=== PATIENT | female | born 1960 | race Caucasian/White ===

== ENCOUNTER → 2018-11-25 14:19 | Outpatient (CLI) | payer OTHER, SELFPAY ==
[2018-11-28 13:47] LABS: Fecal Immunochemical Test NOT DETECTED (NOT DETECTED)
== END ==
PROVIDERS: PCP Internal Medicine; Visit Provider Internal Medicine
DX: Z12.11 Encounter for screening for malignant neoplasm of colon (principal)
CPT/HCPCS: 82274

== ENCOUNTER → 2018-11-26 07:54 | Outpatient (CLI) | payer OTHER, SELFPAY ==
[2018-11-26 09:02] LABS: Add Manual Diff / Slide Review NO; Basophils Absolute Auto 100 /uL (0-100); Eosinophils Absolute Auto 100 /uL (0-450); Eosinophils Percent Auto 1.6 % (2-4); Hematocrit 41.1 % (36-46); Hemoglobin 13.7 g/dL (12.0-16.0); Lymphocytes Absolute Auto 1400 /uL (1100-4500); Lymphocytes Percent Auto 38.1 % (25-40); Mean Corpuscular HGB Conc 33.2 % (30-36); Mean Corpuscular Hemoglobin 28.2 PG (26-34); Mean Corpuscular Volume 84.9 fL (80-100); Monocytes Absolute Auto 200 /uL (0-900); Monocytes Percent Auto 6.5 % (3-14); Neutrophils Absolute Auto 1900 /uL (1500-7000); Neutrophils Percent Auto 51.8 % (50-75); Platelet Count 224 X10^3/uL (150-400); Red Blood Cell Count 4.85 X10^6/uL (4.0-5.2); Red Cell Distribution Width 13.5 % (11.6-14.8); White Blood Cell Count 3.8 X10^3/uL (4.5-11.0)
[2018-11-26 09:09] LABS: Alanine Aminotransferase 25 IU/L (9-52); Albumin 4.9 g/dL (3.5-5.0); Albumin Globulin Ratio 1.7 (1.0-2.8); Alkaline Phosphatase 43 U/L (38-126); Aspartate Aminotransferase 22 IU/L (14-36); Bilirubin Total 0.6 mg/dL (0.2-1.3); Blood Urea Nitrogen 7 mg/dL (7-17); Calcium 10.2 mg/dL (8.4-10.2); Carbon Dioxide 27 mmol/L (22-32); Chloride 103 mmol/L (98-107); Cholesterol 226 mg/dL (140-199); Estimated Glomerular Filt Rate > 60.0 mL/min (>60); Globulin 2.9 g/dL (1.7-4.1); Glucose 91 mg/dL (70-100); HDL Cholesterol 81 mg/dL (40-60); HEMOLYSIS < 15 (0-50); LDL Cholesterol Calculated 128 mg/dL (<100); Potassium 4.2 mmol/L (3.4-5.1); Sodium 141 mmol/L (137-145); Total Protein 7.8 g/dL (6.3-8.2); Triglycerides 86 mg/dL (35-150)
[2018-11-26 09:45] LABS: Free T4, Direct Thyroxine 1.08 ng/dL (0.78-2.19)
[2018-11-26 09:59] LABS: Thyroid Stimulating Hormone 2.57 uIU/mL (0.47-4.68)
== END ==
PROVIDERS: PCP Internal Medicine
DX: Z00.00 Encounter for general adult medical examination without abnormal findings (principal); Z13.1 Encounter for screening for diabetes mellitus; Z13.6 Encounter for screening for cardiovascular disorders; N95.1 Menopausal and female climacteric states; R53.83 Other fatigue
CPT/HCPCS: 36415; 80053; 80061; 83001; 84439; 84443; 85025

== ENCOUNTER → 2018-12-16 12:09 | Outpatient (CLI) | payer OTHER, SELFPAY ==
--- NOTE | 2018-12-16 | DI.MG.S_ITS ---
BILATERAL DIGITAL SCREENING MAMMOGRAM 3D/2D WITH CAD: 12/16/2018 CLINICAL: Baseline exam. Routine screening. No prior exams were available for comparison. The tissue of both breasts is heterogeneously dense. This may lower the sensitivity of mammography. Current study was also evaluated with a Computer Aided Detection (CAD) system. There are benign calcifications in both breasts. No significant masses, calcifications, or other findings are seen in either breast. IMPRESSION: There is no mammographic evidence of malignancy. A 1 year screening mammogram is recommended. This exam was interpreted at Station ID: [id number]. NOTE: For mammograms, a report in lay terms will be sent to the patient. Approximately 15% of breast malignancies will not be visualized mammographically. In the management of a palpable breast mass, a negative mammogram must not discourage biopsy of a clinically suspicious lesion. Electronically Signed By: Juwan [email or web address]:12/16/2018 12:59:27 letter sent: Normal Exam ACR BI-RADS Category 2: Benign Finding(s) 3342F
== END ==
PROVIDERS: PCP Internal Medicine
DX: Z12.31 Encounter for screening mammogram for malignant neoplasm of breast (principal)
CPT/HCPCS: 77063; 77067

== ENCOUNTER 2020-12-13 16:26 | Inpatient (IN) | payer OTHER, SELFPAY ==
[2020-12-13] VITALS (9 sets, daily range): BP systolic 131–152; BP diastolic 73–81; PULSE 69–79; RESP 16–22; TEMP 36.1–37.1; O2SAT 96–100; BMI 18.8; BMI 19.1
--- NOTE | 2020-12-13 | DI.RAD.S_ITS ---
PROCEDURE: XR WRIST RT MIN 3V INDICATIONS: PAIN TECHNIQUE: 4 views of the wrist were acquired. COMPARISON: [facility], CR, XR WRIST LT MIN 3V, 12/13/2020, 16:45. FINDINGS: Bones: No fractures or dislocations. No suspicious bony lesions. Scaphoid view: Visualized fracture. Soft tissues: No suspicious soft tissue calcifications. IMPRESSION: No visualized acute fracture or dislocation. However, if clinical concern and/or pain persist, short interval imaging followup in 7-10 days is recommended, as occult injury cannot be definitively excluded. Dictated by: Nell Mackenzie M.D. on 12/13/2020 at 17:18 Approved by: Nell Mackenzie M.D. on 12/13/2020 at 17:19
--- NOTE | 2020-12-13 16:34 | DI.RAD.S_ITS ---
PROCEDURE: XR WRIST LT MIN 3V INDICATIONS: fall TECHNIQUE: 4 views of the wrist were acquired. COMPARISON: None. FINDINGS: Bones: No fractures or dislocations. No suspicious bony lesions. Scaphoid view: No visualized fracture. Soft tissues: No suspicious soft tissue calcifications. IMPRESSION: No visualized acute fracture or dislocation. However, if clinical concern and/or pain persist, short interval imaging followup in 7-10 days is recommended, as occult injury cannot be definitively excluded. Dictated by: Nell Mackenzie M.D. on 12/13/2020 at 17:17 Approved by: Nell Mackenzie M.D. on 12/13/2020 at 17:17
--- NOTE | 2020-12-13 16:34 | DI.RAD.S_ITS ---
PROCEDURE: XR KNEE RT 1TO2V INDICATIONS: fall TECHNIQUE: 2 views of the knee were acquired. COMPARISON: None. FINDINGS: Bones: There is a markedly displaced mid patellar fracture. Remaining osseous structures appear intact. Soft tissues: Large joint effusion. No suspicious soft tissue calcifications. IMPRESSION: Displaced mid patellar fracture with large effusion. Dictated by: Nell Mackenzie M.D. on 12/13/2020 at 17:17 Approved by: Nell Mackenzie M.D. on 12/13/2020 at 17:18
--- NOTE | 2020-12-13 17:09 | ED_ITS ---
HPI - Extremity Injury (Lower) <RUBIO NuñezP - Last Filed: 12/13/20 23:59> General Chief Complaint: Extremity Injury, Lower Stated Complaint: Fell, knee pain Time Seen by Provider: 12/13/20 16:52 Source: patient Mode of arrival: EMS Limitations: no limitations History of Present Illness HPI Narrative: This is a 60 year female, nonsmoker, who has no contributory medical history presents to ED with chief complain of right knee/patella pain and bilateral radial aspect of wrist pain after she sustained a fall at [employer] (formerly [employer]) before coming into ED. Patient reports she was just moving from sidewalk to the grass median and thinks accidentally her foot was got a caught on tree roots and fell directly on right patella on a sidewalk. Patient reports severe pain on right patella which increases with movement and by light touch. Patient reports intact sensation distally and is able to move toes. Patient also reports intact sensation and is able to move her fingers but pain in volar aspect of bilateral red ear aspect. Patient sustained superficial abrasions on bilateral palm. Patient denies hitting her head or injuring to other areas. Patient had last tetanus immunization updated more than 10 years ago but she is not inclined to update today stating she would like to get COVID vaccination this coming Wednesday. Patient received pain medication en route by EMS. Related Data Previous Rx's Medication Instructions Recorded hydrocortisone acetate 25 mg 25 mg UT BID #12 each 07/14/19 rectal suppository Allergies Allergy/AdvReac Type Severity Reaction Status Date / Time hydrocodone [From VICODIN] AdvReac Unknown Verified 07/14/19 13:51 Review of Systems <JESS Nuñez - Last Filed: 12/13/20 23:59> Review of Systems Narrative: General: Denies fever, chills, fatigue, malaise, sweats. HEENT: Denies sinus pain, ear pain, sore throat, difficulty swallowing, dizziness. Respiratory: Denies dyspnea, cough, wheezing, hemoptysis, sputum. Cardiovascular: Denies chest pain, palpitations, orthopnea, edema. Gastrointestinal: Denies nausea, vomiting, abdominal pain, diarrhea, constipation, melena. : Denies dysuria, frequency, incontinence, hematuria, urinary retention. Musculoskeletal: See HPI Skin: See HPI Neurologic: Denies weakness, headache, numbness, change in speech, confusion, seizures, incoordination. Psychiatric: No concerning psychosocial issues. 12-point review of systems is negative except for those stated above. Patient History <RUBIO NuñezP - Last Filed: 12/13/20 23:59> Medical History Acne (~1969) Allergic rhinitis (Unknown) Chickenpox Chlamydia (~1980) Eczema (Unknown) Endometriosis (~1969) Fibroids (Unknown) Foot pain (Unknown) Fractures (~1961) Genital warts (Unknown) Hemorrhoids (Unknown) IBS (irritable bowel syndrome) (Unknown) Menstrual problem (Unknown) Migraines (Unknown) Ovarian cyst (Unknown) Plantar warts (~1981) Shoulder pain (~2008) Sleep apnea (Unknown) Tinnitus of both ears (Unknown) Vertigo (03/2017) Surgical History History of oral surgery Status post laparoscopy Status post laparoscopy Family History Father Age: 90 Hypertension Grandmother Adult onset diabetes mellitus with ketoacidosis Grandfather No problems noted. Grandmother Cancer Mother No problems noted. Mother Hepatitis C Social History household members: none Smoking Status: Never smoker alcohol intake: never substance use type: does not use Smoking Status: Never smoker Exam <Rashid Aceves JEWELER APPRENTICE - Last Filed: 12/13/20 23:59> Narrative Exam Narrative: General appearance: well developed, well nourished, in moderate distress from pain. Head: normocephalic, atraumatic, no scalp lesions, non-tender. ENT: Hearing grossly intact. Airway patent. Neck/Thyroid: neck supple, full range of motion, no visible masses or meningeal signs. No JVD, non-tender without lymphadenopathy. Skin: See for facial abrasion to bilateral palms without active bleeding. Warm and dry and appropriate color for ethnicity. Heart: no clubbing, no cyanosis, no edema. S1 and S2 normal. RRR w/o murmurs, clicks, or bruits. Lungs: Breathing even and unlabored. No stridor. No accessory muscles used. Able to speak in full sentences. Chest: normal shape and expansion. Abdomen: non-obese, non-distended. Neurologic: alert and oriented. Cognitive exam, D[employer] COMM[employer]ICATION[employer]GER and PNS grossly intact on informal exam. Psych: good eye contact, normal affect. EXTREMITY: Right knee with exquisite pain with light palpation with ecchymosis. Intact pedal pulse, mobility to toes, and sensation distally. Resting affected leg on a pillow. Bilateral wrist able to flex and extend. Intact radial pulses with brisk cap refill in bilateral hand and sensation. Superficial laceration on bilateral palms. No significant edema in posterior knee. Initial Vital Signs Initial Vital Signs: Vital Signs Temperature 97.4 F L 12/13/20 16:40 Pulse Rate 69 12/13/20 16:40 Blood Pressure 152/73 H 12/13/20 16:40 Pulse Oximetry 99 12/13/20 16:40 <Vandana Shrestha DO - Last Filed: 12/14/20 19:52> Initial Vital Signs Initial Vital Signs: Vital Signs Temperature 97.4 F L 12/13/20 16:40 Pulse Rate 69 12/13/20 16:40 Blood Pressure 152/73 H 12/13/20 16:40 Pulse Oximetry 99 12/13/20 16:40 Scores <JESS Nuñez - Last Filed: 12/13/20 23:59> GCS Effie coma scale eye opening: Spontaneous Lamar coma scale verbal response: Orientated Effie coma scale motor response: Obey commands Effie coma scale total score: 15 Course <JESS Nuñez - Last Filed: 12/13/20 23:59> Orders Ordered: Acetaminophen (Acetaminophen 325 Mg Tablet) 975 mg PO TID TO Benzocaine (Benzocaine/Menthol 1 Connie Pkt) 1 each PO PRN PRN PRN Reason: Sore Throat Docusate Sodium (Docusate 100 Mg Capsule) 100 mg PO BID TO Enoxaparin Sodium (Enoxaparin 40 Mg/0.4 Ml Syringe) 40 mg SUBCUT DAILY TO Hydromorphone HCl (Hydromorphone 0.5 Mg Inj) 0.2 mg IV Q1H PRN PRN Reason: Pain, Severe (7-10) Lactated Ringer's (Lactated Ringers) 1,000 mls @ 100 mls/hr IV CONT [facility] Last Admin: 12/14/20 16:15 Dose: 100 mls/hr Documented by: RADHA Cefazolin Sodium/Dextrose (Ancef) 2 gm in 100 mls @ 200 mls/hr IV Q8H [facility] Stop: 12/15/20 05:29 Naloxone HCl (Naloxone 0.4 Mg/Ml Vial) 0.2 mg IV Q2MIN PRN PRN Reason: Opiate Reversal Ondansetron HCl (Ondansetron 4 Mg Odt) 4 mg PO Q4HR PRN PRN Reason: Nausea And Vomiting Oxycodone HCl (Oxycodone Ir 5 Mg Tablet) 5 mg PO Q4HR PRN PRN Reason: Pain, Moderate (4-6) Discontinued Medications Acetaminophen (Acetaminophen 325 Mg Tablet) 650 mg PO NOW ONE Stop: 12/14/20 12:34 Last Admin: 12/14/20 12:40 Dose: 650 mg Documented by: DIOR Docusate Sodium (Docusate 100 Mg Capsule) 100 mg PO BID [facility] Last Admin: 12/14/20 09:14 Dose: Not Given Documented by: Admin: 12/13/20 21:14 Dose: Not Given Documented by: MONIK Fentanyl (Fentanyl 100 Mcg/2 Ml Inj) 50 mcg IV Q1H PRN PRN Reason: Pain, Severe (7-10) Last Admin: 12/14/20 09:30 Dose: 50 mcg Documented by: Admin: 12/14/20 08:23 Dose: 50 mcg Documented by: Admin: 12/14/20 04:39 Dose: 50 mcg Documented by: Admin: 12/14/20 01:04 Dose: 50 mcg Documented by: Admin: 12/13/20 21:53 Dose: 50 mcg Documented by: СЕРГЕЙ Admin: 12/13/20 20:22 Dose: 50 mcg Documented by: ZORHA Fentanyl (Fentanyl 100 Mcg/2 Ml Inj) 100 mcg IV Q1H PRN PRN Reason: Pain, Severe (7-10) Last Admin: 12/14/20 10:31 Dose: 100 mcg Documented by: JAVAD Fentanyl (Fentanyl 100 Mcg/2 Ml Inj) 50 mcg IV Q5MIN PRN PRN Reason: Pain, Severe (7-10) Last Admin: 12/14/20 12:30 Dose: 50 mcg Documented by: DIOR Fentanyl (Fentanyl 100 Mcg/2 Ml Inj) 0 mcg IV Q5M PRN PRN Reason: Pain, Moderate (4-6) Hydromorphone HCl (Hydromorphone 0.5 Mg Inj) 0.5 mg IV NOW ONE Stop: 12/13/20 17:10 Last Admin: 12/13/20 17:33 Dose: 0.5 mg Documented by: SADIE Hydromorphone HCl (Hydromorphone 1 Mg Inj) 1 mg IV Q6H PRN PRN Reason: Pain, Severe (7-10) Hydromorphone HCl (Hydromorphone 2 Mg Inj) 0 mg IV Q5MIN PRN PRN Reason: Pain, Mild (1-3) Hydroxyzine HCl (Hydroxyzine 50 Mg/Ml Inj) 25 mg IM NOW PRN PRN Reason: Pain, Mild (1-3) Hydroxyzine Pamoate (Hydroxyzine Pamoate 25 Mg Capsule) 25 mg PO NOW PRN PRN Reason: Pain, Mild (1-3) Sodium Chloride (Normal Saline 0.9%) 1,000 mls @ 100 mls/hr IV CONT TO Last Infusion: 12/14/20 12:20 Dose: 0 mls/hr Documented by: Admin: 12/14/20 06:32 Dose: 100 mls/hr Documented by: Infusion: 12/14/20 06:32 Dose: 100 mls/hr Documented by: Admin: 12/13/20 21:11 Dose: 100 mls/hr Documented by: MONIK Cefazolin Sodium/Dextrose (Ancef) 2 gm in 100 mls @ 200 mls/hr IV NOW ONE Stop: 12/14/20 12:34 Last Infusion: 12/14/20 13:18 Dose: 0 mls/hr Documented by: Admin: 12/14/20 13:00 Dose: 200 mls/hr Documented by: KEARA Lactated Ringer's (Lactated Ringers) 1,000 mls @ 42 mls/hr IV CONT TO Last Infusion: 12/14/20 15:42 Dose: 42 mls/hr Documented by: Admin: 12/14/20 13:41 Dose: 42 mls/hr Documented by: Infusion: 12/14/20 13:41 Dose: 42 mls/hr Documented by: Admin: 12/14/20 12:37 Dose: 42 mls/hr Documented by: DIOR Ketorolac Tromethamine (Ketorolac 30 Mg/Ml Vial) 30 mg IV NOW ONE Stop: 12/14/20 14:35 Last Admin: 12/14/20 14:34 Dose: 10 mg Documented by: MARLYN Lorazepam (Lorazepam 2 Mg/Ml Inj) 0.25 mg IV NOW PRN PRN Reason: Anxiety Meperidine HCl (Meperidine 50 Mg/Ml Inj) 12.5 mg IV PACUNOW PRN PRN Reason: Mild pain or shivering Metoclopramide HCl (Metoclopramide 10 Mg/2 Ml Inj) 10 mg IV NOW PRN PRN Reason: Nausea And Vomiting Midazolam HCl (Midazolam 2 Mg/2 Ml Vial) 2 mg IV NOW ONE Stop: 12/14/20 12:20 Last Admin: 12/14/20 12:31 Dose: 1 mg Documented by: DIOR Morphine Sulfate (Morphine 2 Mg/Ml Inj) 2 mg IV Q4HR PRN PRN Reason: Pain, Moderate (4-6) Last Admin: 12/14/20 06:49 Dose: 2 mg Documented by: Admin: 12/14/20 03:07 Dose: 2 mg Documented by: Admin: 12/13/20 23:40 Dose: 2 mg Documented by: ARLENE Morphine Sulfate (Morphine 2 Mg/Ml Inj) 2 mg IV Q2HR [facility] Last Admin: 12/14/20 12:05 Dose: Not Given Documented by: Admin: 12/14/20 10:32 Dose: Not Given Documented by: AJVAD Morphine Sulfate (Morphine 2 Mg/Ml Inj) 2 mg IV Q2HR PRN PRN Reason: Pain, Moderate (4-6) Morphine Sulfate (Morphine 4 Mg/Ml Inj) 4 mg IV NOW ONE Stop: 12/14/20 14:35 Last Admin: 12/14/20 14:34 Dose: 4 mg Documented by: MARLYN Naloxone HCl (Naloxone 0.4 Mg/Ml Vial) 0.2 mg IV Q2MIN PRN PRN Reason: Opiate Reversal Ondansetron HCl (Ondansetron 4 Mg Odt) 4 mg PO Q8HR PRN PRN Reason: Nausea And Vomiting Last Admin: 12/13/20 21:53 Dose: 4 mg Documented by: СЕРГЕЙ Ondansetron HCl (Ondansetron 4 Mg/2 Ml Inj) 4 mg IV Q4HR PRN PRN Reason: Nausea And Vomiting Last Admin: 12/14/20 12:31 Dose: 4 mg Documented by: DIOR Ondansetron HCl (Ondansetron 4 Mg/2 Ml Inj) 4 mg IV NOW PRN PRN Reason: Nausea And Vomiting Oxycodone HCl (Oxycodone Ir 5 Mg Tablet) 5 mg PO Q6HR PRN PRN Reason: Pain, Moderate (4-6) Oxycodone HCl (Oxycodone Ir 5 Mg Tablet) 5 mg PO PACUNOW PRN PRN Reason: Mild or moderate pain Ropivacaine (Ropivacaine 0.5% Pf 5 Mg/Ml 20ml Vial) 10 ml INJ NOW ONE Stop: 12/14/20 14:32 Last Admin: 12/14/20 14:32 Dose: 8 ml Documented by: MARLYN Reevaluation(s) Reevaluation #1: patient reports Dilaudid help after feeling calmed but pain moscoso much improvement. Patient unable to tolerate palpation and assessment with exquisite pain. Patient lives alone and has stairs to manage at home. Time: 18:30 Reevaluation #2: Patient requesting more pain medications fentanyl which worked better for her. This is her 4th IV medication administration to manage pain to tolerable level. Time: 20:05 Consultations Consultation #1: Consulted Dr. Benoit on the phone. If the pain is not well managed, he recommended for hospitalization under hospitalist care and he will consult. Patient is surgical candidate for this repair for patella fracture. Time: 18:31 Consultation #2: Spoke with for admission and he kindly accepted the patient's care for pain management under observation. Time: 20:11 Vital Signs Vital signs: Vital Signs - 8 hr 12/13/20 16:40 12/13/20 17:06 12/13/20 17:30 Temperature 97.4 F L Pulse Rate 69 73 76 Blood Pressure 152/73 H Pulse Oximetry 99 98 100 12/13/20 18:00 12/13/20 18:30 12/13/20 19:00 Temperature Pulse Rate 79 73 76 Blood Pressure Pulse Oximetry 99 99 98 <Vandana Shrestha, DO - Last Filed: 12/14/20 19:52> Orders Ordered: Acetaminophen (Acetaminophen 325 Mg Tablet) 975 mg PO TID [facility] Benzocaine (Benzocaine/Menthol 1 Connie Pkt) 1 each PO PRN PRN PRN Reason: Sore Throat Docusate Sodium (Docusate 100 Mg Capsule) 100 mg PO BID [facility] Enoxaparin Sodium (Enoxaparin 40 Mg/0.4 Ml Syringe) 40 mg SUBCUT DAILY [facility] Hydromorphone HCl (Hydromorphone 0.5 Mg Inj) 0.2 mg IV Q1H PRN PRN Reason: Pain, Severe (7-10) Lactated Ringer's (Lactated Ringers) 1,000 mls @ 100 mls/hr IV CONT [facility] Last Admin: 12/14/20 16:15 Dose: 100 mls/hr Documented by: RADHA Cefazolin Sodium/Dextrose (Ancef) 2 gm in 100 mls @ 200 mls/hr IV Q8H [facility] Stop: 12/15/20 05:29 Naloxone HCl (Naloxone 0.4 Mg/Ml Vial) 0.2 mg IV Q2MIN PRN PRN Reason: Opiate Reversal Ondansetron HCl (Ondansetron 4 Mg Odt) 4 mg PO Q4HR PRN PRN Reason: Nausea And Vomiting Oxycodone HCl (Oxycodone Ir 5 Mg Tablet) 5 mg PO Q4HR PRN PRN Reason: Pain, Moderate (4-6) Discontinued Medications Acetaminophen (Acetaminophen 325 Mg Tablet) 650 mg PO NOW ONE Stop: 12/14/20 12:34 Last Admin: 12/14/20 12:40 Dose: 650 mg Documented by: DIOR Docusate Sodium (Docusate 100 Mg Capsule) 100 mg PO BID [facility] Last Admin: 12/14/20 09:14 Dose: Not Given Documented by: Admin: 12/13/20 21:14 Dose: Not Given Documented by: MONIK Fentanyl (Fentanyl 100 Mcg/2 Ml Inj) 50 mcg IV Q1H PRN PRN Reason: Pain, Severe (7-10) Last Admin: 12/14/20 09:30 Dose: 50 mcg Documented by: Admin: 12/14/20 08:23 Dose: 50 mcg Documented by: Admin: 12/14/20 04:39 Dose: 50 mcg Documented by: Admin: 12/14/20 01:04 Dose: 50 mcg Documented by: Admin: 12/13/20 21:53 Dose: 50 mcg Documented by: СЕРГЕЙ Admin: 12/13/20 20:22 Dose: 50 mcg Documented by: ZOHRA Fentanyl (Fentanyl 100 Mcg/2 Ml Inj) 100 mcg IV Q1H PRN PRN Reason: Pain, Severe (7-10) Last Admin: 12/14/20 10:31 Dose: 100 mcg Documented by: JAVAD Fentanyl (Fentanyl 100 Mcg/2 Ml Inj) 50 mcg IV Q5MIN PRN PRN Reason: Pain, Severe (7-10) Last Admin: 12/14/20 12:30 Dose: 50 mcg Documented by: DIOR Fentanyl (Fentanyl 100 Mcg/2 Ml Inj) 0 mcg IV Q5M PRN PRN Reason: Pain, Moderate (4-6) Hydromorphone HCl (Hydromorphone 0.5 Mg Inj) 0.5 mg IV NOW ONE Stop: 12/13/20 17:10 Last Admin: 12/13/20 17:33 Dose: 0.5 mg Documented by: SADIE Hydromorphone HCl (Hydromorphone 1 Mg Inj) 1 mg IV Q6H PRN PRN Reason: Pain, Severe (7-10) Hydromorphone HCl (Hydromorphone 2 Mg Inj) 0 mg IV Q5MIN PRN PRN Reason: Pain, Mild (1-3) Hydroxyzine HCl (Hydroxyzine 50 Mg/Ml Inj) 25 mg IM NOW PRN PRN Reason: Pain, Mild (1-3) Hydroxyzine Pamoate (Hydroxyzine Pamoate 25 Mg Capsule) 25 mg PO NOW PRN PRN Reason: Pain, Mild (1-3) Sodium Chloride (Normal Saline 0.9%) 1,000 mls @ 100 mls/hr IV CONT TO Last Infusion: 12/14/20 12:20 Dose: 0 mls/hr Documented by: Admin: 12/14/20 06:32 Dose: 100 mls/hr Documented by: Infusion: 12/14/20 06:32 Dose: 100 mls/hr Documented by: Admin: 12/13/20 21:11 Dose: 100 mls/hr Documented by: MONIK Cefazolin Sodium/Dextrose (Ancef) 2 gm in 100 mls @ 200 mls/hr IV NOW ONE Stop: 12/14/20 12:34 Last Infusion: 12/14/20 13:18 Dose: 0 mls/hr Documented by: Admin: 12/14/20 13:00 Dose: 200 mls/hr Documented by: KEARA Lactated Ringer's (Lactated Ringers) 1,000 mls @ 42 mls/hr IV CONT TO Last Infusion: 12/14/20 15:42 Dose: 42 mls/hr Documented by: Admin: 12/14/20 13:41 Dose: 42 mls/hr Documented by: Infusion: 12/14/20 13:41 Dose: 42 mls/hr Documented by: Admin: 12/14/20 12:37 Dose: 42 mls/hr Documented by: DIOR Ketorolac Tromethamine (Ketorolac 30 Mg/Ml Vial) 30 mg IV NOW ONE Stop: 12/14/20 14:35 Last Admin: 12/14/20 14:34 Dose: 10 mg Documented by: MARLYN Lorazepam (Lorazepam 2 Mg/Ml Inj) 0.25 mg IV NOW PRN PRN Reason: Anxiety Meperidine HCl (Meperidine 50 Mg/Ml Inj) 12.5 mg IV PACUNOW PRN PRN Reason: Mild pain or shivering Metoclopramide HCl (Metoclopramide 10 Mg/2 Ml Inj) 10 mg IV NOW PRN PRN Reason: Nausea And Vomiting Midazolam HCl (Midazolam 2 Mg/2 Ml Vial) 2 mg IV NOW ONE Stop: 12/14/20 12:20 Last Admin: 12/14/20 12:31 Dose: 1 mg Documented by: DIOR Morphine Sulfate (Morphine 2 Mg/Ml Inj) 2 mg IV Q4HR PRN PRN Reason: Pain, Moderate (4-6) Last Admin: 12/14/20 06:49 Dose: 2 mg Documented by: Admin: 12/14/20 03:07 Dose: 2 mg Documented by: Admin: 12/13/20 23:40 Dose: 2 mg Documented by: ARLENE Morphine Sulfate (Morphine 2 Mg/Ml Inj) 2 mg IV Q2HR TO Last Admin: 12/14/20 12:05 Dose: Not Given Documented by: Admin: 12/14/20 10:32 Dose: Not Given Documented by: JAVAD Morphine Sulfate (Morphine 2 Mg/Ml Inj) 2 mg IV Q2HR PRN PRN Reason: Pain, Moderate (4-6) Morphine Sulfate (Morphine 4 Mg/Ml Inj) 4 mg IV NOW ONE Stop: 12/14/20 14:35 Last Admin: 12/14/20 14:34 Dose: 4 mg Documented by: MARLYN Naloxone HCl (Naloxone 0.4 Mg/Ml Vial) 0.2 mg IV Q2MIN PRN PRN Reason: Opiate Reversal Ondansetron HCl (Ondansetron 4 Mg Odt) 4 mg PO Q8HR PRN PRN Reason: Nausea And Vomiting Last Admin: 12/13/20 21:53 Dose: 4 mg Documented by: СЕРГЕЙ Ondansetron HCl (Ondansetron 4 Mg/2 Ml Inj) 4 mg IV Q4HR PRN PRN Reason: Nausea And Vomiting Last Admin: 12/14/20 12:31 Dose: 4 mg Documented by: DIOR Ondansetron HCl (Ondansetron 4 Mg/2 Ml Inj) 4 mg IV NOW PRN PRN Reason: Nausea And Vomiting Oxycodone HCl (Oxycodone Ir 5 Mg Tablet) 5 mg PO Q6HR PRN PRN Reason: Pain, Moderate (4-6) Oxycodone HCl (Oxycodone Ir 5 Mg Tablet) 5 mg PO PACUNOW PRN PRN Reason: Mild or moderate pain Ropivacaine (Ropivacaine 0.5% Pf 5 Mg/Ml 20ml Vial) 10 ml INJ NOW ONE Stop: 12/14/20 14:32 Last Admin: 12/14/20 14:32 Dose: 8 ml Documented by: MARLYN Vital Signs Vital signs: Vital Signs - 8 hr 12/13/20 16:40 12/13/20 17:06 12/13/20 17:30 Temperature 97.4 F L Pulse Rate 69 73 76 Blood Pressure 152/73 H Pulse Oximetry 99 98 100 12/13/20 18:00 12/13/20 18:30 12/13/20 19:00 Temperature Pulse Rate 79 73 76 Blood Pressure Pulse Oximetry 99 99 98 MDM - Extremity Injury (Lower) <Rashid AcevesJESS - Last Filed: 12/13/20 23:59> Differential Diagnosis Differential diagnosis: Likely other (Patella fracture, knee sprain, wrist sprain, wrist fracture, abrasion) Medical Records Attestation: I reviewed the patient's medical records. Lab Data Attestation: I reviewed the patient's lab results. Result diagrams: 12/14/20 04:45 12/14/20 04:45 Labs: Lab Results 12/13/20 12/13/20 12/13/20 Range/Units 18:20 18:20 18:20 WBC 6.1 (4.5-11.0) X10^3/uL RBC 4.84 (4.0-5.2) X10^6/uL Hgb 13.4 (12.0-16.0) g/dL Hct 39.7 (36-46) % MCV 82.1 (80-100) fL MCH 27.6 (26-34) PG MCHC 33.6 (30-36) % RDW 12.8 (11.6-14.8) % Plt Count 187 (150-400) X10^3/uL Neut % (Auto) 70.6 (50-75) % Lymph % (Auto) 22.3 L (25-40) % [place] % (Auto) 5.3 (3-14) % Eos % (Auto) 0.6 L (2-4) % Baso % (Auto) 1.2 (0-2) % Neut # (Auto) 4300 (6602-3198) /uL Lymph # (Auto) 1400 (7777-1557) /uL [place] # (Auto) 300 (0-900) /uL Eos # (Auto) 0 (0-450) /uL Baso # (Auto) 100 (0-100) /uL PT 11.2 (10.1-12.7) SECONDS INR 1.0 (0.9-1.3) APTT 28 (26.4-36.2) SECONDS Sodium 138 (137-145) mmol/L Potassium 4.1 (3.4-5.1) mmol/L Chloride 104 (98-107) mmol/L Carbon Dioxide 26 (22-32) mmol/L BUN 11 (7-17) mg/dL Creatinine 0.69 (0.52-1.04) mg/dL Estimated GFR > 60.0 (>60) mL/min BUN/Creatinine Ratio 15.9 (6-22) Glucose 104 (80-110) mg/dL Calcium 9.5 (8.4-10.2) mg/dL Total Bilirubin 0.3 (0.2-1.3) mg/dL AST 25 (14-36) IU/L ALT 11 (<35) IU/L Alkaline Phosphatase 48 (38-126) U/L Total Protein 6.9 (6.3-8.2) g/dL Albumin 4.5 (3.5-5.0) g/dL Globulin 2.4 (1.7-4.1) g/dL Albumin/Globulin Ratio 1.9 (1.0-2.8) SARS-CoV-2 (PCR) (Negative) 12/13/20 Range/Units 18:37 WBC (4.5-11.0) X10^3/uL RBC (4.0-5.2) X10^6/uL Hgb (12.0-16.0) g/dL Hct (36-46) % MCV (80-100) fL MCH (26-34) PG MCHC (30-36) % RDW (11.6-14.8) % Plt Count (150-400) X10^3/uL Neut % (Auto) (50-75) % Lymph % (Auto) (25-40) % [place] % (Auto) (3-14) % Eos % (Auto) (2-4) % Baso % (Auto) (0-2) % Neut # (Auto) (1409-4043) /uL Lymph # (Auto) (0791-5882) /uL [place] # (Auto) (0-900) /uL Eos # (Auto) (0-450) /uL Baso # (Auto) (0-100) /uL PT (10.1-12.7) SECONDS INR (0.9-1.3) APTT (26.4-36.2) SECONDS Sodium (137-145) mmol/L Potassium (3.4-5.1) mmol/L Chloride (98-107) mmol/L Carbon Dioxide (22-32) mmol/L BUN (7-17) mg/dL Creatinine (0.52-1.04) mg/dL Estimated GFR (>60) mL/min BUN/Creatinine Ratio (6-22) Glucose (80-110) mg/dL Calcium (8.4-10.2) mg/dL Total Bilirubin (0.2-1.3) mg/dL AST (14-36) IU/L ALT (<35) IU/L Alkaline Phosphatase (38-126) U/L Total Protein (6.3-8.2) g/dL Albumin (3.5-5.0) g/dL Globulin (1.7-4.1) g/dL Albumin/Globulin Ratio (1.0-2.8) SARS-CoV-2 (PCR) Negative (Negative) Imaging Data XR-Knee RT: Radiologist's Impression: [address] [id number] ReportSigned Patient: Maci Karimi#: [id number]: 1960Acct:[id number]/Sex: 60 / FDate of Service: 12/13/20Loc: EDAccession Number: [id number] Procedure: XR knee RT 1to2V Ordering Provider: Vandana Shrestha D.O. PROCEDURE: XR KNEE RT 1TO2V INDICATIONS: fall TECHNIQUE: 2 views of the knee were acquired. COMPARISON: None. FINDINGS: Bones: There is a markedly displaced mid patellar fracture. Remaining osseous structures appear intact. Soft tissues: Large joint effusion. No suspicious soft tissue calcifications. IMPRESSION: Displaced mid patellar fracture with large effusion. Dictated by: Nell Mackenzie M.D. on 12/13/2020 at 17:17 Approved by: Nell Mackenzie M.D. on 12/13/2020 at 17:18 XR-Wrist RT: Radiologist's Impression: [address] [id number] ReportSigned Patient: Maci KarimiMR#: [id number]: [birth year] 60Acct:[id number]/Sex: 60 / FDate of Service: 12/13/20Loc: EDAccession Number: [id number] Procedure: XR wrist RT min 3V Ordering Provider: Rashid Aceves PROCEDURE: XR WRIST RT MIN 3V INDICATIONS: PAIN TECHNIQUE: 4 views of the wrist were acquired. COMPARISON: [facility], XR WRIST LT MIN 3V, 12/13/2020, 16:45. FINDINGS: Bones: No fractures or dislocations. No suspicious bony lesions. Scaphoid view: Visualized fracture. Soft tissues: No suspicious soft tissue calcifications. IMPRESSION: No visualized acute fracture or dislocation. However, if clinical concern and/or pain persist, short interval imaging followup in 7-10 days is recommended, as occult injury cannot be definitively excluded. Dictated by: Nell Mackenzie M.D. on 12/13/2020 at 17:18 Approved by: Nell Mackenzie M.D. on 12/13/2020 at 17:19 XR-Wrist LT: Radiologist's Impression: [address] [id number] ReportSigned Patient: Maci KarimiMR#: [id number]: 1960Acct:[id number]/Sex: 60 / FDate of Service: 12/13/20Loc: EDAccession Number: [id number] Procedure: XR wrist RT min 3V Ordering Provider: Rashid Aceves PROCEDURE: XR WRIST RT MIN 3V INDICATIONS: PAIN TECHNIQUE: 4 views of the wrist were acquired. COMPARISON: [facility], XR WRIST LT MIN 3V, 12/13/2020, 16:45. FINDINGS: Bones: No fractures or dislocations. No suspicious bony lesions. Scaphoid view: Visualized fracture. Soft tissues: No suspicious soft tissue calcifications. IMPRESSION: No visualized acute fracture or dislocation. However, if clinical concern and/or pain persist, short interval imaging followup in 7-10 days is recommended, as occult injury cannot be definitively excluded. Dictated by: Nell Mackenzie M.D. on 12/13/2020 at 17:18 Approved by: Nell Mackenzie M.D. on 12/13/2020 at 17:19 MDM Narrative Medical decision making narrative: This is a 60 year female who had a ground level fall accidentally her foot got caught on branches landed directly on right knee on a sidewalk with bilateral hand FOOSH. Patient has exquisite tenderness to palpate in right patella with swelling and ecchymosis. Patient has intact sensation and pedal pulse distally. Posterior all knee without swelling to palpate. Patient was medicated 3 times total including at the scene with narcotic IV medications. Patient lives alone with steps. Difficulty managing patient's pain and is like unable to tolerate knee immobilizer. Patient also has bilateral wrist strain from a fall with superficial abrasions. Knee x-ray shows displaced mid patella fracture with large effusion. Bilateral wrist x-ray negative findings. Labs are assuring. COVID test was negative. Patient declined tetanus immunization this time stating would like to get COVID vaccination which is scheduled on Wednesday. Despite Patient was educated that patient could take tetanus vaccination with COVID vaccination. Dr. Benoit consulted and he is happy to consult the patient's case and she requires surgical repair for the patella repair. PCP Dr. Obrien and Dr. Hubbard consulted for admitting the patient for pain management and possible surgical procedure to repair patella fracture by ortho. Dr. Hubbard kindly accepted the patient's care for observation. <Vandana Shrestha, DO - Last Filed: 12/14/20 19:52> Lab Data Labs: Lab Results 12/13/20 12/13/20 12/13/20 Range/Units 18:20 18:20 18:20 WBC 6.1 (4.5-11.0) X10^3/uL RBC 4.84 (4.0-5.2) X10^6/uL Hgb 13.4 (12.0-16.0) g/dL Hct 39.7 (36-46) % MCV 82.1 (80-100) fL MCH 27.6 (26-34) PG MCHC 33.6 (30-36) % RDW 12.8 (11.6-14.8) % Plt Count 187 (150-400) X10^3/uL Neut % (Auto) 70.6 (50-75) % Lymph % (Auto) 22.3 L (25-40) % [place] % (Auto) 5.3 (3-14) % Eos % (Auto) 0.6 L (2-4) % Baso % (Auto) 1.2 (0-2) % Neut # (Auto) 4300 (2033-8834) /uL Lymph # (Auto) 1400 (1812-3004) /uL [place] # (Auto) 300 (0-900) /uL Eos # (Auto) 0 (0-450) /uL Baso # (Auto) 100 (0-100) /uL PT 11.2 (10.1-12.7) SECONDS INR 1.0 (0.9-1.3) APTT 28 (26.4-36.2) SECONDS Sodium 138 (137-145) mmol/L Potassium 4.1 (3.4-5.1) mmol/L Chloride 104 (98-107) mmol/L Carbon Dioxide 26 (22-32) mmol/L BUN 11 (7-17) mg/dL Creatinine 0.69 (0.52-1.04) mg/dL Estimated GFR > 60.0 (>60) mL/min BUN/Creatinine Ratio 15.9 (6-22) Glucose 104 (80-110) mg/dL Calcium 9.5 (8.4-10.2) mg/dL Total Bilirubin 0.3 (0.2-1.3) mg/dL AST 25 (14-36) IU/L ALT 11 (<35) IU/L Alkaline Phosphatase 48 (38-126) U/L Total Protein 6.9 (6.3-8.2) g/dL Albumin 4.5 (3.5-5.0) g/dL Globulin 2.4 (1.7-4.1) g/dL Albumin/Globulin Ratio 1.9 (1.0-2.8) SARS-CoV-2 (PCR) (Negative) 12/13/20 Range/Units 18:37 WBC (4.5-11.0) X10^3/uL RBC (4.0-5.2) X10^6/uL Hgb (12.0-16.0) g/dL Hct (36-46) % MCV (80-100) fL MCH (26-34) PG MCHC (30-36) % RDW (11.6-14.8) % Plt Count (150-400) X10^3/uL Neut % (Auto) (50-75) % Lymph % (Auto) (25-40) % [place] % (Auto) (3-14) % Eos % (Auto) (2-4) % Baso % (Auto) (0-2) % Neut # (Auto) (8516-3053) /uL Lymph # (Auto) (2525-4664) /uL [place] # (Auto) (0-900) /uL Eos # (Auto) (0-450) /uL Baso # (Auto) (0-100) /uL PT (10.1-12.7) SECONDS INR (0.9-1.3) APTT (26.4-36.2) SECONDS Sodium (137-145) mmol/L Potassium (3.4-5.1) mmol/L Chloride (98-107) mmol/L Carbon Dioxide (22-32) mmol/L BUN (7-17) mg/dL Creatinine (0.52-1.04) mg/dL Estimated GFR (>60) mL/min BUN/Creatinine Ratio (6-22) Glucose (80-110) mg/dL Calcium (8.4-10.2) mg/dL Total Bilirubin (0.2-1.3) mg/dL AST (14-36) IU/L ALT (<35) IU/L Alkaline Phosphatase (38-126) U/L Total Protein (6.3-8.2) g/dL Albumin (3.5-5.0) g/dL Globulin (1.7-4.1) g/dL Albumin/Globulin Ratio (1.0-2.8) SARS-CoV-2 (PCR) Negative (Negative) Discharge Plan Departure Patient Disposition: Admitted as Observation Clinical Impression: Fracture, patella Qualifiers: Encounter type: initial encounter Fracture type: closed Fracture morphology: unspecified fracture morphology Fracture alignment: displaced Laterality: right Qualified Code(s): S82.001A - Unspecified fracture of right patella, initial encounter for closed fracture Fall Qualifiers: Encounter type: initial encounter Qualified Code(s): W19.XXXA - Unspecified fall, initial encounter Sprain of wrist Qualifiers: Encounter type: initial encounter Laterality: unspecified laterality Qualified Code(s): S63.509A - Unspecified sprain of unspecified wrist, initial encounter Admit Date/Time: 12/13/20 20:10 Admit Provider: Chapo Hubbard <Vandana Shrestha DO - Last Filed: 12/14/20 19:52> Cosign ED Attending Cosignature Attestation: I was immediately available in the department for consultation. Documentation has been reviewed. Patient was also seen by myself has significant swelling of her right knee. Imaging was also reviewed. Orthopedic surgery is happy to see patient here at the hospital alt julissa she can be discharged home but was unable to be DC home secondary to difficulty with pain management. Dr. Hubbard kindly accepted for observation.
[2020-12-13] MEDS: HYDROMORPHONE 0.5 MG INJ IV (17:33)
[2020-12-13 18:31] LABS: Add Manual Diff / Slide Review NO; Basophils Absolute Auto 100 /uL (0-100); Basophils Percent Auto 1.2 % (0-2); Eosinophils Absolute Auto 0 /uL (0-450); Eosinophils Percent Auto 0.6 % (2-4); Hematocrit 39.7 % (36-46); Hemoglobin 13.4 g/dL (12.0-16.0); Lymphocytes Absolute Auto 1400 /uL (1100-4500); Lymphocytes Percent Auto 22.3 % (25-40); Mean Corpuscular HGB Conc 33.6 % (30-36); Mean Corpuscular Hemoglobin 27.6 PG (26-34); Mean Corpuscular Volume 82.1 fL (80-100); Monocytes Absolute Auto 300 /uL (0-900); Monocytes Percent Auto 5.3 % (3-14); Neutrophils Absolute Auto 4300 /uL (1500-7000); Neutrophils Percent Auto 70.6 % (50-75); Platelet Count 187 X10^3/uL (150-400); Red Blood Cell Count 4.84 X10^6/uL (4.0-5.2); Red Cell Distribution Width 12.8 % (11.6-14.8); White Blood Cell Count 6.1 X10^3/uL (4.5-11.0)
[2020-12-13 18:39] LABS: Prothrombin Time 11.2 SECONDS (10.1-12.7)
[2020-12-13 18:42] LABS: PTT Partial Thromboplastin Tim 28 SECONDS (26.4-36.2)
[2020-12-13 18:47] LABS: Alanine Aminotransferase 11 IU/L (<35); Albumin 4.5 g/dL (3.5-5.0); Albumin Globulin Ratio 1.9 (1.0-2.8); Alkaline Phosphatase 48 U/L (38-126); Aspartate Aminotransferase 25 IU/L (14-36); BUN Creatinine Ratio 15.9 (6-22); Bilirubin Total 0.3 mg/dL (0.2-1.3); Blood Urea Nitrogen 11 mg/dL (7-17); Calcium 9.5 mg/dL (8.4-10.2); Carbon Dioxide 26 mmol/L (22-32); Chloride 104 mmol/L (98-107); Estimated Glomerular Filt Rate > 60.0 mL/min (>60); Globulin 2.4 g/dL (1.7-4.1); Glucose 104 mg/dL (80-110); HEMOLYSIS < 15 (0-50); Potassium 4.1 mmol/L (3.4-5.1); Sodium 138 mmol/L (137-145); Total Protein 6.9 g/dL (6.3-8.2)
[2020-12-13 19:35] LABS: COVID19 - ADMIT (NP swab/PCR) Negative (Negative)
[2020-12-13] MEDS: fentaNYL 100 MCG/2 ML INJ 50 MCG IV ×2 (20:22→21:53)
[2020-12-13] MEDS: SODIUM CHLORIDE 0.9% 1,000 ML 100 ML IV (21:11)
[2020-12-13] MEDS: ONDANSETRON 4 MG ODT PO (21:53)
--- NOTE | 2020-12-13 22:53 | PC.NURSE ---
received report from ED on pt at 2019. Pt up to unit by 2044, extremely sensitive to any movement of the right lower extremity. Vital signs stable, pt alert and oriented x4. Did not want any more pain medication upon arrival to unit. denies numbness/tingling to right lower extremity, able to wiggle toes. Pedal Pulses palpable bilaterally, extremities warm. Superficial abrasions to bilateral wrists from falling. Pt educated on pain medications and modalities, nausea medication, plan of care (including NPO status and rationale for colace). Pt refused colace stating she doesn't want to get diarrhea and she has a very sensitive stomach. Knee circumference measured at 15cm.
[2020-12-13] MEDS: MORPHINE 2 MG/ML INJ IV (23:40)
[2020-12-14] VITALS (20 sets, daily range): BP systolic 98–149; BP diastolic 55–92; PULSE 70–96; RESP 11–19; TEMP 36.3–37.2; O2SAT 92–99
--- NOTE | 2020-12-14 | DI.RAD.S_ITS ---
PROCEDURE: XR KNEE RT 1TO2V INDICATIONS: right patella TECHNIQUE: 2 views of the knee were acquired. COMPARISON: [facility], , XR KNEE RT 1TO2V, 12/13/2020, 16:45. FINDINGS: Bones: Intraoperative images demonstrating ORIF of previous mid patellar fracture. Hardware is intact and there is good anatomic alignment. Soft tissues: No joint effusion. No suspicious soft tissue calcifications. IMPRESSION: ORIF of mid patellar fracture as above. Dictated by: Nell Mackenzie M.D. on 12/14/2020 at 14:38 Approved by: Nell Mackenzie M.D. on 12/14/2020 at 14:39
[2020-12-14] MEDS: fentaNYL 100 MCG/2 ML INJ 50 MCG IV ×5 (01:04→12:30)
[2020-12-14] MEDS: MORPHINE 2 MG/ML INJ IV ×2 (03:07→06:49)
[2020-12-14 05:16] LABS: Add Manual Diff / Slide Review NO; Basophils Absolute Auto 0 /uL (0-100); Basophils Percent Auto 0.7 % (0-2); Eosinophils Absolute Auto 0 /uL (0-450); Hemoglobin 12.6 g/dL (12.0-16.0); Lymphocytes Absolute Auto 900 /uL (1100-4500); Lymphocytes Percent Auto 12.2 % (25-40); Mean Corpuscular HGB Conc 33.1 % (30-36); Mean Corpuscular Hemoglobin 27.5 PG (26-34); Monocytes Absolute Auto 300 /uL (0-900); Monocytes Percent Auto 4.6 % (3-14); Neutrophils Absolute Auto 6000 /uL (1500-7000); Neutrophils Percent Auto 82.5 % (50-75); Platelet Count 182 X10^3/uL (150-400); Red Blood Cell Count 4.58 X10^6/uL (4.0-5.2); White Blood Cell Count 7.2 X10^3/uL (4.5-11.0)
[2020-12-14 05:20] LABS: BUN Creatinine Ratio 17.5 (6-22); Blood Urea Nitrogen 10 mg/dL (7-17); Calcium 9.3 mg/dL (8.4-10.2); Carbon Dioxide 27 mmol/L (22-32); Chloride 104 mmol/L (98-107); Estimated Glomerular Filt Rate > 60.0 mL/min (>60); Glucose 111 mg/dL (80-110); HEMOLYSIS < 15 (0-50); Potassium 4.4 mmol/L (3.4-5.1); Sodium 137 mmol/L (137-145)
[2020-12-14] MEDS: SODIUM CHLORIDE 0.9% 1,000 ML 100 ML IV (06:32)
--- NOTE | 2020-12-14 09:18 | PM.HP.1 ---
History of Present Illness History of Present Illness Date Patient Seen: 12/14/20 Time Patient Seen: 09:07 Date of Onset of Symptoms: 12/13/20 Chief complaint: Fell, knee pain Narrative: Pt in generally good health but fell on [place] yesterday, got her foot caught in a roof and smacked her right knee onto pavement. Imaging revealed a displaced patellar fracture. Dr. Benoit orthopedic surgery was consulted and he agreed she would make for a good surgical candidate. She has no significant medical issues and takes no medications at baseline. She has been admitted with pain control measures. Patient History Medical History Acne (~1969) Allergic rhinitis (Unknown) Chickenpox Chlamydia (~1980) Eczema (Unknown) Endometriosis (~1969) Fibroids (Unknown) Foot pain (Unknown) Fractures (~1961) Genital warts (Unknown) Hemorrhoids (Unknown) IBS (irritable bowel syndrome) (Unknown) Menstrual problem (Unknown) Migraines (Unknown) Ovarian cyst (Unknown) Plantar warts (~1981) Shoulder pain (~2008) Sleep apnea (Unknown) Tinnitus of both ears (Unknown) Vertigo (03/2017) Surgical History History of oral surgery Status post laparoscopy Status post laparoscopy Family & Social History Family History Father Age: 90 Hypertension Grandmother Adult onset diabetes mellitus with ketoacidosis Grandfather No problems noted. Grandmother Cancer Mother No problems noted. Mother Hepatitis C Safety & Behavioral: Feels Safe in Current Yes Environment Been Physically Hurt or No Threatened By a Person Suicidal Ideation Description None Tobacco & Substance use: Smoking Status Never smoker alcohol intake never Meds Home Medications and Allergies Home Medications Medication Instructions Recorded Confirmed Type hydrocortisone acetate 25 mg 25 mg NM BID #12 each 07/14/19 07/14/19 Rx rectal suppository Allergies Allergy/AdvReac Type Severity Reaction Status Date / Time acetaminophen [From VICODIN] AdvReac Unknown Verified 07/14/19 13:51 hydrocodone [From VICODIN] AdvReac Unknown Verified 07/14/19 13:51 Review of Systems Review of Systems ROS: Yes All systems reviewed with the patient and are negative except as otherwise documented Exam Vital Signs (past 8 hours): - 12/14/20 04:39 12/14/20 08:00 Temperature 98.2 F 98.5 F Pulse Rate 87 88 Respiratory Rate 16 18 Blood Pressure 145/64 H 133/78 Pulse Oximetry 98 99 Oxygen Delivery Method Room Air Oxygen Flow Rate 0 Narrative Exam Narrative: pleasant cooperative pt in bed Const General: cooperative, comfortable and No in distress Resp Effort & Inspection: normal respiratory effort and able to speak in complete sentences Auscultation: clear to auscultation bilaterally Cardio Rate: regular rate Rhythm: regular rhythm Heart Sounds: S1 normal and S2 normal Extrem Other: R leg extended in splint with distal neurovascular intact Objective Labs Result Diagrams: 12/14/20 04:45 12/14/20 04:45 Labs: Laboratory Results - last 24 hr 12/13/20 12/13/20 12/13/20 18:20 18:20 18:20 WBC 6.1 RBC 4.84 Hgb 13.4 Hct 39.7 MCV 82.1 MCH 27.6 MCHC 33.6 RDW 12.8 Plt Count 187 Neut % (Auto) 70.6 Lymph % (Auto) 22.3 L [place] % (Auto) 5.3 Eos % (Auto) 0.6 L Baso % (Auto) 1.2 Neut # (Auto) 4300 Lymph # (Auto) 1400 [place] # (Auto) 300 Eos # (Auto) 0 Baso # (Auto) 100 PT 11.2 INR 1.0 APTT 28 Sodium 138 Potassium 4.1 Chloride 104 Carbon Dioxide 26 BUN 11 Creatinine 0.69 Estimated GFR > 60.0 BUN/Creatinine Ratio 15.9 Glucose 104 Calcium 9.5 Total Bilirubin 0.3 AST 25 ALT 11 Alkaline Phosphatase 48 Total Protein 6.9 Albumin 4.5 Globulin 2.4 Albumin/Globulin Ratio 1.9 Nasal Screen MRSA (PCR) SARS-CoV-2 (PCR) 12/13/20 12/13/20 12/14/20 18:37 21:10 04:45 WBC 7.2 RBC 4.58 Hgb 12.6 Hct 38.0 MCV 83.0 MCH 27.5 MCHC 33.1 RDW 13.0 Plt Count 182 Neut % (Auto) 82.5 H Lymph % (Auto) 12.2 L [place] % (Auto) 4.6 Eos % (Auto) 0.0 L Baso % (Auto) 0.7 Neut # (Auto) 6000 Lymph # (Auto) 900 L [place] # (Auto) 300 Eos # (Auto) 0 Baso # (Auto) 0 PT INR APTT Sodium Potassium Chloride Carbon Dioxide BUN Creatinine Estimated GFR BUN/Creatinine Ratio Glucose Calcium Total Bilirubin AST ALT Alkaline Phosphatase Total Protein Albumin Globulin Albumin/Globulin Ratio Nasal Screen MRSA (PCR) Negative for mrsa SARS-CoV-2 (PCR) Negative 12/14/20 04:45 WBC RBC Hgb Hct MCV MCH MCHC RDW Plt Count Neut % (Auto) Lymph % (Auto) [place] % (Auto) Eos % (Auto) Baso % (Auto) Neut # (Auto) Lymph # (Auto) [place] # (Auto) Eos # (Auto) Baso # (Auto) PT INR APTT Sodium 137 Potassium 4.4 Chloride 104 Carbon Dioxide 27 BUN 10 Creatinine 0.57 Estimated GFR > 60.0 BUN/Creatinine Ratio 17.5 Glucose 111 H Calcium 9.3 Total Bilirubin AST ALT Alkaline Phosphatase Total Protein Albumin Globulin Albumin/Globulin Ratio Nasal Screen MRSA (PCR) SARS-CoV-2 (PCR) Assessment & Plan Assessment & Plan narrative: #Displaced R patella fracture #s/p GLF NPO for surgery, Dr. Benoit proposes to address this today. Pt will need PT/OT eval, CM to explore possible rehab dc Pain control with prn fentanyl, morphine DVT ppx: ICDs diet: NPO code: full Quality VTE Deep Vein Thrombosis/Pulmonary Embolism Present on Admission: No
[2020-12-14] MEDS: fentaNYL 100 MCG/2 ML INJ IV (10:31)
--- NOTE | 2020-12-14 11:12 | PM.PN.1 ---
Subjective Subjective Date Patient Seen: 12/14/20 Time Patient Seen: 11:12 Interval history: Patient seen this morning for right patella fracture. Patient is scheduled for open reduction internal fixation right patella fracture later today. Patient's pain is been moderate to severe. She notes the knee is very painful to any palpation or movement. She injured her knee while walking on a trail. She notes she moved out of the way, off to the side atrial and when she attempted to get back on the trial she slipped landing on a hyperflexed knee. She was seen in the emergency room and admitted for right patella fracture. No nausea or vomiting. No fever or chills. Patient has been NPO since yesterday evening. Exam Vital Signs (past 8 hours): - 12/14/20 04:39 12/14/20 08:00 Temperature 98.2 F 98.5 F Pulse Rate 87 88 Respiratory Rate 16 18 Blood Pressure 145/64 H 133/78 Pulse Oximetry 98 96 Oxygen Delivery Method Room Air Oxygen Flow Rate 0 Narrative Exam Narrative: Pleasant 6-year-old female resting comfortably in bed in no apparent distress. Large effusion right knee. No erythema or ecchymosis. Motor functions intact distal right lower extremity. Sensation grossly intact to light touch right distal lower extremity. Both legs are warm and dry. Objective Labs Result Diagrams: 12/14/20 04:45 12/14/20 04:45 Labs: Laboratory Results - last 24 hr 12/13/20 12/13/20 12/13/20 18:20 18:20 18:20 WBC 6.1 RBC 4.84 Hgb 13.4 Hct 39.7 MCV 82.1 MCH 27.6 MCHC 33.6 RDW 12.8 Plt Count 187 Neut % (Auto) 70.6 Lymph % (Auto) 22.3 L [place] % (Auto) 5.3 Eos % (Auto) 0.6 L Baso % (Auto) 1.2 Neut # (Auto) 4300 Lymph # (Auto) 1400 [place] # (Auto) 300 Eos # (Auto) 0 Baso # (Auto) 100 PT 11.2 INR 1.0 APTT 28 Sodium 138 Potassium 4.1 Chloride 104 Carbon Dioxide 26 BUN 11 Creatinine 0.69 Estimated GFR > 60.0 BUN/Creatinine Ratio 15.9 Glucose 104 Calcium 9.5 Total Bilirubin 0.3 AST 25 ALT 11 Alkaline Phosphatase 48 Total Protein 6.9 Albumin 4.5 Globulin 2.4 Albumin/Globulin Ratio 1.9 Nasal Screen MRSA (PCR) SARS-CoV-2 (PCR) 12/13/20 12/13/20 12/14/20 18:37 21:10 04:45 WBC 7.2 RBC 4.58 Hgb 12.6 Hct 38.0 MCV 83.0 MCH 27.5 MCHC 33.1 RDW 13.0 Plt Count 182 Neut % (Auto) 82.5 H Lymph % (Auto) 12.2 L [place] % (Auto) 4.6 Eos % (Auto) 0.0 L Baso % (Auto) 0.7 Neut # (Auto) 6000 Lymph # (Auto) 900 L [place] # (Auto) 300 Eos # (Auto) 0 Baso # (Auto) 0 PT INR APTT Sodium Potassium Chloride Carbon Dioxide BUN Creatinine Estimated GFR BUN/Creatinine Ratio Glucose Calcium Total Bilirubin AST ALT Alkaline Phosphatase Total Protein Albumin Globulin Albumin/Globulin Ratio Nasal Screen MRSA (PCR) Negative for mrsa SARS-CoV-2 (PCR) Negative 12/14/20 04:45 WBC RBC Hgb Hct MCV MCH MCHC RDW Plt Count Neut % (Auto) Lymph % (Auto) [place] % (Auto) Eos % (Auto) Baso % (Auto) Neut # (Auto) Lymph # (Auto) [place] # (Auto) Eos # (Auto) Baso # (Auto) PT INR APTT Sodium 137 Potassium 4.4 Chloride 104 Carbon Dioxide 27 BUN 10 Creatinine 0.57 Estimated GFR > 60.0 BUN/Creatinine Ratio 17.5 Glucose 111 H Calcium 9.3 Total Bilirubin AST ALT Alkaline Phosphatase Total Protein Albumin Globulin Albumin/Globulin Ratio Nasal Screen MRSA (PCR) SARS-CoV-2 (PCR) [address] [address] ReportSigned Patient: Maci KarimiMR#: [id number]: 1960Acct:[id number]/Sex: 60 / FDate of Service: 12/13/20Loc: EDAccession Number: [id number] Procedure: XR knee RT 1to2V Ordering Provider: Vandana Shrestha D.O. PROCEDURE: XR KNEE RT 1TO2V INDICATIONS: fall TECHNIQUE: 2 views of the knee were acquired. COMPARISON: None. FINDINGS: Bones: There is a markedly displaced mid patellar fracture. Remaining osseous structures appear intact. Soft tissues: Large joint effusion. No suspicious soft tissue calcifications. IMPRESSION: Displaced mid patellar fracture with large effusion. Dictated by: Nell Mackenzie M.D. on 12/13/2020 at 17:17 Approved by: Nell Mackenzie M.D. on 12/13/2020 at 17:18 [facility] Medical History Acne (~1969) Allergic rhinitis (Unknown) Chickenpox Chlamydia (~1980) Eczema (Unknown) Endometriosis (~1969) Fibroids (Unknown) Foot pain (Unknown) Fractures (~1961) Genital warts (Unknown) Hemorrhoids (Unknown) IBS (irritable bowel syndrome) (Unknown) Menstrual problem (Unknown) Migraines (Unknown) Ovarian cyst (Unknown) Plantar warts (~1981) Shoulder pain (~2008) Sleep apnea (Unknown) Tinnitus of both ears (Unknown) Vertigo (03/2017) Surgical History History of oral surgery Status post laparoscopy Status post laparoscopy Family History Father Age: 90 Hypertension Grandmother Adult onset diabetes mellitus with ketoacidosis Grandfather No problems noted. Grandmother Cancer Mother No problems noted. Mother Hepatitis C Social History Smoking Status: Never smoker alcohol intake: never substance use type: does not use Assessment & Plan Assessment & Plan narrative: Displaced mid patellar fracture, right. Open reduction internal fixation right patella fracture. Patient to remain NPO. Quality VTE Deep Vein Thrombosis/Pulmonary Embolism Present on Admission: No
--- NOTE | 2020-12-14 12:03 | PM.CN ---
History of Present Illness Consult details Date Patient Seen: 12/14/20 Time Patient Seen: 12:03 Chief complaint: Fell, knee pain Reason for consult: right patella fracture Narrative: Patient is a 6-year-old female who was hiking yesterday when she fell onto her right knee she had immediate onset of pain and swelling and inability to ambulate. She was seen on hospital ER where she was diagnosed with a transverse right patella fracture. She was admitted overnight for pain control. Patient lives alone. Patient denies any previous injuries to the right knee or any previous right knee pain. She is an independent community ambulator. Meds Home Medications and Allergies Home Medications Medication Instructions Recorded Confirmed Type hydrocortisone acetate 25 mg 25 mg MS BID #12 each 07/14/19 07/14/19 Rx rectal suppository Allergies Allergy/AdvReac Type Severity Reaction Status Date / Time acetaminophen [From VICODIN] AdvReac Unknown Verified 07/14/19 13:51 hydrocodone [From VICODIN] AdvReac Unknown Verified 07/14/19 13:51 Review of Systems Review of Systems ROS: Yes All systems reviewed with the patient and are negative except as otherwise documented Exam Vital Signs (past 8 hours): - 12/14/20 04:39 12/14/20 08:00 Temperature 98.2 F 98.5 F Pulse Rate 87 88 Respiratory Rate 16 18 Blood Pressure 145/64 H 133/78 Pulse Oximetry 98 96 Oxygen Delivery Method Room Air Oxygen Flow Rate 0 Narrative Exam Narrative: Neurovascular intact in the right lower extremity. Swelling about the right knee. Exquisite tenderness to palpation about the right knee. Extensor mechanism is disrupted. Palpable defect. Extremities warm well perfused. Objective Imaging Knee x-ray: My impression: Transverse right patella fracture with moderate displacement. Labs Result Diagrams: 12/14/20 04:45 12/14/20 04:45 Labs: Laboratory Results - last 24 hr 12/13/20 12/13/20 12/13/20 18:20 18:20 18:20 WBC 6.1 RBC 4.84 Hgb 13.4 Hct 39.7 MCV 82.1 MCH 27.6 MCHC 33.6 RDW 12.8 Plt Count 187 Neut % (Auto) 70.6 Lymph % (Auto) 22.3 L [place] % (Auto) 5.3 Eos % (Auto) 0.6 L Baso % (Auto) 1.2 Neut # (Auto) 4300 Lymph # (Auto) 1400 [place] # (Auto) 300 Eos # (Auto) 0 Baso # (Auto) 100 PT 11.2 INR 1.0 APTT 28 Sodium 138 Potassium 4.1 Chloride 104 Carbon Dioxide 26 BUN 11 Creatinine 0.69 Estimated GFR > 60.0 BUN/Creatinine Ratio 15.9 Glucose 104 Calcium 9.5 Total Bilirubin 0.3 AST 25 ALT 11 Alkaline Phosphatase 48 Total Protein 6.9 Albumin 4.5 Globulin 2.4 Albumin/Globulin Ratio 1.9 Nasal Screen MRSA (PCR) SARS-CoV-2 (PCR) 12/13/20 12/13/20 12/14/20 18:37 21:10 04:45 WBC 7.2 RBC 4.58 Hgb 12.6 Hct 38.0 MCV 83.0 MCH 27.5 MCHC 33.1 RDW 13.0 Plt Count 182 Neut % (Auto) 82.5 H Lymph % (Auto) 12.2 L [place] % (Auto) 4.6 Eos % (Auto) 0.0 L Baso % (Auto) 0.7 Neut # (Auto) 6000 Lymph # (Auto) 900 L [place] # (Auto) 300 Eos # (Auto) 0 Baso # (Auto) 0 PT INR APTT Sodium Potassium Chloride Carbon Dioxide BUN Creatinine Estimated GFR BUN/Creatinine Ratio Glucose Calcium Total Bilirubin AST ALT Alkaline Phosphatase Total Protein Albumin Globulin Albumin/Globulin Ratio Nasal Screen MRSA (PCR) Negative for mrsa SARS-CoV-2 (PCR) Negative 12/14/20 04:45 WBC RBC Hgb Hct MCV MCH MCHC RDW Plt Count Neut % (Auto) Lymph % (Auto) [place] % (Auto) Eos % (Auto) Baso % (Auto) Neut # (Auto) Lymph # (Auto) [place] # (Auto) Eos # (Auto) Baso # (Auto) PT INR APTT Sodium 137 Potassium 4.4 Chloride 104 Carbon Dioxide 27 BUN 10 Creatinine 0.57 Estimated GFR > 60.0 BUN/Creatinine Ratio 17.5 Glucose 111 H Calcium 9.3 Total Bilirubin AST ALT Alkaline Phosphatase Total Protein Albumin Globulin Albumin/Globulin Ratio Nasal Screen MRSA (PCR) SARS-CoV-2 (PCR) Assessment & Plan Assessment & Plan narrative: Patient is a 60-year-old female who had a ground level fall yesterday sustaining a right displaced transverse patella fracture. Patient was admitted overnight due to pain control and dispo issues. She has disruption of her extensor mechanism. I had a long discussion with patient regarding symptoms well as her x-ray findings and exam findings which are consistent with transverse patella fracture. Patient will require open reduction internal fixation of her right patella fracture. After discussion of the risks and benefits of surgery including the risk of infection malunion, nonunion, need for future surgeries, symptomatic hardware, DVT, infection, PE, , etc.. Patient demonstrates understanding the risks and benefits and wishes to proceed with open reduction internal fixation of a right transverse patella fracture. - NPO - OCTOR for ORIF right patella - NWB RLE Time Spent With Patient Time with patient: 25 - 35 minutes
--- NOTE | 2020-12-14 12:26 | PC.NURSE ---
pt left floor for surgery after removing undergarments and clothing from home- pain control has been an issue this am and pt requiring pain rx via IV every 1-1.5 hours - using bedpan to void and has maintained npo status
[2020-12-14] MEDS: MIDAZOLAM 2 MG/2 ML VIAL IV (12:31)
[2020-12-14] MEDS: ONDANSETRON 4 MG/2 ML INJ IV (12:31)
[2020-12-14] MEDS: LACTATED RINGERS 1,000 ML 42 ML IV ×2 (12:37→13:41)
[2020-12-14] MEDS: ACETAMINOPHEN 325 MG TABLET 650 MG PO (12:40)
--- NOTE | 2020-12-14 12:53 | CM.DANOTE ---
DCP: Case received, EMR reviewed and met with patient. Introduced self and role. Was able to obtain information from patient regarding her baseline activity level prior to hospitalization, as well as her current living situation. DCP assessment completed with information currently available. Patient is a 60 year old female who admitted yesterday evening to the care of the hospitalist team. PCP: Dr. Obrien. Payer: confirmed: [facility]. Patient came to the hospital via ambulance secondary to having a ground level fall. She had [place], and had tripped over some jessy. She landed on her wrists/knee. She developed a right patella fracture. Patient had an orthopedic consultation, and is expected to have surgery today. Met with patient this morning. She is alert and oriented, in bed. Stated, she was in a lot of pain, and needed pain medications routinely. At the time, she had not yet seen ortho, and was anxious to know the plan, if she would need surgery. Now, it is known that she will have surgery today. Patient is active at baseline. 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 Stated that she has no immediate family in the area. After surgery, and when stable, she will work with P.T. P: DCP to continue to follow. Patient should be able to go home, will see how she does after surgery and with P.T. Sharri Lopez RN/Finance Assistant
--- NOTE | 2020-12-14 12:58 | SUR.HOLD ---
Block start time [1230] . Monitoring initiated and maintained throughout procedure. Oxygen and medications given per anesthesiologist instructions. Patient remained stable throughout procedure, no adverse reactions noted. Block end time 1258[].
[2020-12-14] MEDS: CEFAZOLIN 2 GM/100 ML FROZ.PIGGY IV ×2 (13:00→20:51)
--- NOTE | 2020-12-14 13:28 | SUR.OPER ---
Addendum entered by Zeny Tomlin R.N. 12/14/20 13:29: Tape over blanket over left lower leg, right leg in control of the surgeon. Original Note: Supine on padded OR bed, head on pillow, arms secured on padded arm boards at <90 degrees abduction, legs uncrossed, safety belt at thigh, tape over blanket over lower legs.
--- NOTE | 2020-12-14 14:17 | P.PCN_ITS ---
Procedures Date/Time Date of procedure: 12/14/20 Time of procedure: 12:30 Nerve Block Time out performed: Yes Local anesthetic used: other Location of anesthetic used: 15 ml Ropivacaine 0.5% + 3 ml Lidocaine 2% with epi Amount of anesthesia used (mL): 18 Nerve blocks: femoral (Right) Procedure successful: Yes Patient tolerated procedure: well and no complications Complications: none Additional comments: Consent signed. Block performed in PACU preoperatively. Routine monitors and NC O2. IV sedation with Fentanyl 50mcg and Midazolam 1mg given. Nerve Stimulator and Ultrasound techniques utilized. Chloroprep and sterile drape. Landmarks identified and right femoral pulse obtained. Visualization with US. Local with 25g using Lidocaine 1%. 50mm Stimex needle not long enough; switched to 100mm length. Positive twitch and patient moved, s o had to reposition needle. Block complete and patient tolerated well. Ready for OR.
[2020-12-14] MEDS: ROPIVACAINE 0.5% PF 5 MG/ML 20ML VIAL 10 ML INJ (14:32)
[2020-12-14] MEDS: MORPHINE 4 MG/ML INJ IV (14:34)
[2020-12-14] MEDS: KETOROLAC 30 MG/ML VIAL IV (14:34)
--- NOTE | 2020-12-14 15:12 | PM.OP.1 ---
Operative Date/Time/Diagnoses Date of procedure: 12/14/20 Time of procedure: 15:12 Pre-op diagnosis: right transverse patella fracture Post-op diagnosis: same Procedure & Clinicians Procedure: Open reduction internal fixation right transverse patella fracture Same procedure as scheduled: Yes Indications: Displaced transverse patella fracture with disruption of the extensor mechanism. Surgeon: Norberto Benoit Click Yes if Unassisted: Yes Anesthesia Type: General Operative Notes Findings: Displaced transverse patella fracture Closure Type: primary Specimen(s): none sent Prosthetic devices, grafts, tissues, transplants, or devices: 28 mm 4-0 cannulated partially threaded screw 30 mm 4-0 cannulated partially threaded screw 18 gauge wire Estimated Blood Loss (mL): 50 Tourniquet time (min): 45 Procedure in detail: Patient was met in the preoperative holding area where the site and side of surgery were marked by . Informed consent was reviewed the preoperative holding area including the risks and benefits of surgery risks include but are not limited to infection, malunion, nonunion, need for future surgeries, symptomatic hardware, DVT, PE, , etc.. Patient demonstrates understanding the risks and benefits and wished to proceed. Patient was then brought back in the operating room where she was induced under general anesthesia a nonsterile tourniquet was then placed on the right thigh and right lower extremity then prepped and draped in normal sterile fashion. A surgical time-out was performed verifying site and side of surgery as well as the name of the patient. A longitudinal incision over the right anterior aspect of the knee in line with the extremity was made through the skin using 10. Blade and medial lateral flaps were then elevated. This point was noted that she disruption of the retinaculum although this was not extensive. Fracture was evident. Fracture hematoma was evacuated. Normal saline lavage and suction were then used to remove clot. This point the fracture was able to be identified there was 2 large fragments 1 proximal 1 distal although there are also 2 small free-floating flag minutes that were also identified. The periosteum was elevated from the fracture edges both on the proximal segment and distal segment. A [id number] reduction clamp was then used to reduce the patella and fluoroscopy was brought in for verification of reduction. Next a threaded tip K-wire was placed from proximal to distal under fluoroscopic guidance. A 2nd K-wire was then also placed parallel to this wire. These were then measured to a depth of 28 mm and 30 mm. The K-wire was then overdrilled with a 2.7 mm drill and the screws were then placed. K-wires were then removed and an 18 gauge wire was then passed through the screws in a [id number] fashion and tightened. Final fluoroscopic imaging was brought in verify maintenance of reduction as well as hardware placement. The wound was then thoroughly irrigated with normal saline the retinaculum was then closed with a Ethibond suture as was the periosteum over the fracture site. The was able to be flexed to 30? of flexion without any gapping at the fracture. A running 1. Vicryl was then used in the Alfredito's fascia followed by 2 Vicryl interrupted fashion and the subcutaneous layer followed by cm on skin an Aquacel dressing. A knee immobilizer was then placed. Complications: none Post-operative Condition: stable Disposition: PACU Plan for aftercare: 24 hours post-op abx, PRINCESSB RLE, KI at all time.
--- NOTE | 2020-12-14 15:17 | SUR.PHASEI ---
1502: received patient from OR staff in stable condition. Placed on monitor and storage bin tender and placed on oxygen at 4 liters via nasal cannula. Placed oral airway to patient on arrival due to less than optimal rise and fall of chest. Lungs CTA on auscultation with oral airway in place. Right lower extremity with knee immobilizer and geovanna wrap in place. Ice pack to site. Strong DP pulse palpated. Capillary refill less than 3 seconds. Skin pink, warm and dry.
[2020-12-14] MEDS: LACTATED RINGERS 1,000 ML 100 ML IV (16:15)
--- NOTE | 2020-12-14 18:16 | PC.NURSE ---
Addendum entered by Carla Simmons R.N. 12/14/20 22:40: Pt able to come off of all supplementary O2 needed during post-op. 98% on room air Original Note: Evening shift note: 1601 Pt returned from surgery via bed, report received from PACU nurse Gloria. VSS, pt currently on 2L NC for desaturation to 88% post-op. Pt denies pain, states she feels no pain at all, right knee immobilizer on over geovanna wrap, aqua cell dressing and cm CDI. Orders to advance diet as tolerated, pt tolerating water and advanced to general diet per pt request. Fluids infusing as ordered, no further needs at this time, bed low and locked, call light within reach, will continue to monitor.
[2020-12-14] MEDS: ACETAMINOPHEN 325 MG TABLET 975 MG PO (20:51)
[2020-12-14] MEDS: DOCUSATE 100 MG CAPSULE PO (20:51)
[2020-12-15] MEDS: LACTATED RINGERS 1,000 ML 100 ML IV (02:51)
[2020-12-15 03:49] VITALS: BP 135/63; PULSE 76; RESP 16; TEMP 36.6; O2SAT 97
[2020-12-15] MEDS: OXYCODONE IR 5 MG TABLET PO ×2 (03:53→07:19)
[2020-12-15] MEDS: HYDROMORPHONE 0.5 MG INJ 0.2 MG IV ×2 (04:23→09:31)
[2020-12-15] MEDS: CEFAZOLIN 2 GM/100 ML FROZ.PIGGY IV (04:23)
[2020-12-15 05:16] LABS: Mean Corpuscular HGB Conc 33.5 % (30-36); Mean Corpuscular Hemoglobin 27.8 PG (26-34); Platelet Count 154 X10^3/uL (150-400); Red Blood Cell Count 3.97 X10^6/uL (4.0-5.2); Red Cell Distribution Width 12.7 % (11.6-14.8); White Blood Cell Count 7.1 X10^3/uL (4.5-11.0)
[2020-12-15] MEDS: ACETAMINOPHEN 325 MG TABLET 975 MG PO ×3 (07:19→20:40)
[2020-12-15] MEDS: DOCUSATE 100 MG CAPSULE PO ×2 (07:19→20:40)
[2020-12-15 08:00] VITALS: BP 132/65; PULSE 76; RESP 18; TEMP 37; O2SAT 98
[2020-12-15] MEDS: ENOXAPARIN 40 MG/0.4 ML SYRINGE SUBCUT (08:32)
--- NOTE | 2020-12-15 10:15 | PM.PN.1 ---
Subjective Subjective Date Patient Seen: 12/15/20 Time Patient Seen: 09:15 Interval history: Pt doing well postop, limited in working with PT today d/t pain. She is concerned at prospect of going to rehab facility d/t covid concerns as she is unvaccinated. She is limited in her community support here and lives alone in a domicile with stairs and a small bathroom. Eating and urinating ok. Exam Vital Signs (past 8 hours): - 12/15/20 03:49 12/15/20 08:00 Temperature 97.8 F 98.6 F Pulse Rate 76 76 Respiratory Rate 16 18 Blood Pressure 135/63 132/65 Pulse Oximetry 97 98 Oxygen Delivery Method Room Air Oxygen Flow Rate 0 Narrative Exam Narrative: pleasant lady in NAD with R leg in extension splint Const General: cooperative, healthy appearing and comfortable Resp Effort & Inspection: normal respiratory effort and able to speak in complete sentences Auscultation: clear to auscultation bilaterally Cardio Rate: regular rate Rhythm: regular rhythm Heart Sounds: S1 normal and S2 normal Extrem Other: R leg distal NV intact, no soaking through splint. Objective Labs Result Diagrams: 12/15/20 04:45 12/14/20 04:45 Labs: Laboratory Results - last 24 hr 12/15/20 04:45 WBC 7.1 RBC 3.97 L Hgb 11.0 L Hct 33.0 L MCV 83.0 MCH 27.8 MCHC 33.5 RDW 12.7 Plt Count 154 PFSH Medical History Acne (~1969) Allergic rhinitis (Unknown) Chickenpox Chlamydia (~1980) Eczema (Unknown) Endometriosis (~1969) Fibroids (Unknown) Foot pain (Unknown) Fractures (~1961) Genital warts (Unknown) Hemorrhoids (Unknown) IBS (irritable bowel syndrome) (Unknown) Menstrual problem (Unknown) Migraines (Unknown) Ovarian cyst (Unknown) Plantar warts (~1981) Shoulder pain (~2008) Sleep apnea (Unknown) Tinnitus of both ears (Unknown) Vertigo (03/2017) Surgical History History of oral surgery Status post laparoscopy Status post laparoscopy Family History Father Age: 90 Hypertension Grandmother Adult onset diabetes mellitus with ketoacidosis Grandfather No problems noted. Grandmother Cancer Mother No problems noted. Mother Hepatitis C Social History household members: none Smoking Status: Never smoker alcohol intake: never substance use type: does not use Assessment & Plan Assessment & Plan narrative: #Displaced R patella fracture #s/p GLF s/p surgical fixation wtih Dr. Benoit. Per Dr Benoit pt is WBAT on RLE. Splint to remain on at all times with leg in extension until he sees her for f/u in 2 wks. Continue lovenox qd for 6 weeks postop abx completed after 24 hrs Resume normal diet, optimize pain control, and work with PT, if home is discharge goal she will need to make progress to transferring and getting around. DVT ppx:Lovenox diet: general code: full Quality VTE Deep Vein Thrombosis/Pulmonary Embolism Present on Admission: No
--- NOTE | 2020-12-15 10:15 | PM.PN.1 ---
Subjective Subjective Date Patient Seen: 12/15/20 Time Patient Seen: 10:15 Interval history: Patient is now postop day 1 from open reduction internal fixation of right patella fracture. Overall she is doing okay however she has pain control issues and is slow to mobilize with physical therapy. Exam Vital Signs (past 8 hours): - 12/15/20 03:49 12/15/20 08:00 Temperature 97.8 F 98.6 F Pulse Rate 76 76 Respiratory Rate 16 18 Blood Pressure 135/63 132/65 Pulse Oximetry 97 98 Oxygen Delivery Method Room Air Oxygen Flow Rate 0 Narrative Exam Narrative: Neurovascular intact right lower extremity. Dressing clean dry intact Objective Labs Result Diagrams: 12/15/20 04:45 12/14/20 04:45 Labs: Laboratory Results - last 24 hr 12/15/20 04:45 WBC 7.1 RBC 3.97 L Hgb 11.0 L Hct 33.0 L MCV 83.0 MCH 27.8 MCHC 33.5 RDW 12.7 Plt Count 154 PFSH Medical History Acne (~1969) Allergic rhinitis (Unknown) Chickenpox Chlamydia (~1980) Eczema (Unknown) Endometriosis (~1969) Fibroids (Unknown) Foot pain (Unknown) Fractures (~1961) Genital warts (Unknown) Hemorrhoids (Unknown) IBS (irritable bowel syndrome) (Unknown) Menstrual problem (Unknown) Migraines (Unknown) Ovarian cyst (Unknown) Plantar warts (~1981) Shoulder pain (~2008) Sleep apnea (Unknown) Tinnitus of both ears (Unknown) Vertigo (03/2017) Surgical History History of oral surgery Status post laparoscopy Status post laparoscopy Family History Father Age: 90 Hypertension Grandmother Adult onset diabetes mellitus with ketoacidosis Grandfather No problems noted. Grandmother Cancer Mother No problems noted. Mother Hepatitis C Social History household members: none Smoking Status: Never smoker alcohol intake: never substance use type: does not use Assessment & Plan Assessment & Plan narrative: Patient is a 60-year-old female who is now postop day 1 for open reduction internal fixation of right patella fracture. At this point will continue work on physical therapy mobilization. - weightbearing as tolerated in knee immobilizer - knee immobilizer at all times except for hygiene - Lovenox for 6 weeks for DVT prophylaxis - Orthopedic clinic with Dr. Benoit in 10-14 days Time Spent With Patient Time with patient: less than 15 minutes Quality VTE Deep Vein Thrombosis/Pulmonary Embolism Present on Admission: No
[2020-12-15 10:48] VITALS: PULSE 88; RESP 18; O2SAT 99
[2020-12-15] MEDS: OXYCODONE IR 5 MG TABLET 10 MG PO ×4 (11:09→22:38)
--- NOTE | 2020-12-15 11:50 | CM.DPC ---
DCP Cont: Met with patient today. Discussed discharge planning. Patient stated, I will never go to rehab, I have been staying away from people for the last year, and haven't even been vaccinated yet. Patient is continuing to have signficant pain, had her surgery yesterday. She also stated, I really don't want to leave this hospital until I get vaccinated. She is aware that recent guidelines in this state mention eligability of vaccine for those 60 and over. Mentioned patient's concerns to primary nurse, Katherine, who stated that Dr. Benoit is looking into this for patient, and was told this recently. Updated patient and let her know. She is willing to have home health, as long as her insurance covers it. She stated that she can take taxi home at discharge, and that there are a couple of stairs to get into her home. P: DCP to continue to follow. At this time, plan is for home with home health. Patient has never used home health, has no preferences at this time. Will need to get face to face signed. Sharri Lopez RN/Fruit Inspector
--- NOTE | 2020-12-15 12:00 | PT-IP ANOTE ---
Addendum entered and electronically signed by Claudia Adkins, PT 12/15/20 15:33: Pt continued to refuse PT evaluation this PM, citing unresolved pain and swelling. Pt now in bed with KI undone and EDWARD wrap removed per ortho MD order. Will attempt to work with pt Wednesday. Original Note: Met with pt today at 0900 and at noon. On first visit, obtained and documented PLOF but pt reported increase in pain to 10/10 with bed mobility. Agreed to coordinate with RN for attempt to work with pt at noon. 30 minutes after PO pain medication and in concert with IV pain medication, pt remained unable to tolerate bed mobility secondary to pain. Educated pt on importance of continued mobility, WB status, techniques for transfer using FWW. Will attempt to see pt again later today.
[2020-12-15] MEDS: MORPHINE 2 MG/ML INJ IV ×3 (12:03→21:26)
--- NOTE | 2020-12-15 14:17 | PC.NURSE ---
Addendum entered by Sultana Chao R.N. 12/15/20 14:46: Pt transferred to room 211 from room 228 via bed. Medicated with oxycodone and tylenol prior to transfer. All belongings with pt including jacket, shoes, clothing, and small green backpack. Call light placed within reach. Report will be given to oncoming shift. Original Note: Day Shift Note Pt initially reporting pain to right knee at 3/10 on morning assessment, CMS intact, oxycodone 5 mg administered prior to PT. PT attempted to work with pt but pt reported pain had increased to 8/10, declines to get up to BSC or chair, allowing very limited repositions in bed. Increase in pain reported to Dr. Hubbard and Dr. Benoit. New orders received for 10mg oxycodone and 2 mg morphine IV, medications given. PT attempted again to work with pt but pt declined to get out of bed. Reports pain continues to be 8-10/10, reports oxycodone and morphine did not work. RLE elevated, declines ice. Called into room shortly after and pt reported pain at 10/10 and that knee felt swollen ever since PT worked with me, also reported numbness to right foot. Pulse palpable, toes to right foot pink and warm to touch. Pt declined assessment of right knee under immobilizer to be done by this nurse. Dr. Benoit updated via phone on the above including 10/10 pain unresolved with oxycodone and morphine and right foot numbness. Order received to undo immobilizer in the bed and to remove EDWARD wrap. This was done at bedside with FINANCE BROKER assisting, pt allowed removal after explaining MD order and rationale. Encouraged to place ice to knee but pt declines. Aquacel dressing C/D/I.
[2020-12-15 15:37] VITALS: BP 141/79; PULSE 77; RESP 18; TEMP 37.2; O2SAT 96
--- NOTE | 2020-12-15 17:36 | PC.NURSE ---
Addendum entered by Staci Billy R.N. 12/15/20 22:41: Reports pain to right knee now 6/10. Removes ice for rest from cold. Has immobilizer in place open to right knee and secures loosely around knee prn. Addendum entered by Staci Billy R.N. 12/15/20 21:59: I'm doing great. Pt reports able to doze intermittently. Ice remains x 2 to right knee lateral and medial aspect. Pt admits to full sensation to right foot. Bedpan use; not out of bed this evening shift. Taking oral fluids well. Addendum entered by Staci Billy R.N. 12/15/20 20:43: Pt acknowledges ice to right knee is helping to manage pain. Addendum entered by Staci Billy R.N. 12/15/20 18:53: Discussion with pt re pain level never decreasing below 8/10. Pt does not wish to change regimen of meds at this time, but suggested by this junior underwriter pt speak with provider during rounds in a.m. 12/16. Pt verbalizes agreement. This junior underwriter offers ice to right knee and pt accepts. This was provided x [address] on either side of knee. Original Note: Pt awake, alert resting quietly in bed. Discussion with pt regarding preferences for pain management this evening shift. Pt reports does not want any dilaudid. Expresses preference to stay with current regimen of oxycodone and morphine as ordered. Rates right knee pain 8/10. Pt requests this junior underwriter does not touch right knee. Pt opens immobilizer and reveals aquacel dressing intact with spotty drainage. Allows touching of operative foot which is warm and pt denies any numbness to this foot. Brisk cap refill with warm and pink foot. Morphine iv administered slow push as per pt request. Pt refuses to wear scd to left calf. States is moving left leg often. Informed pt pt is at high risk for blood clots d/t orthopedic injury and surgery. Pt continues to refuse and demonstrates movement of left leg independently. Prune juice provided for bowel function and dinner tray set up for pt in bed.
[2020-12-15 20:40] VITALS: BP 131/74; PULSE 78; RESP 17; TEMP 37.1; O2SAT 97
[2020-12-15] MEDS: SODIUM CHLORIDE 0.9% FLUSH 10 ML IV (21:27)
[2020-12-15 23:25] VITALS: BP 117/67; PULSE 80; RESP 18; TEMP 36.9; O2SAT 94
[2020-12-16] MEDS: MORPHINE 2 MG/ML INJ IV (01:15)
[2020-12-16] MEDS: OXYCODONE IR 5 MG TABLET 10 MG PO ×5 (02:57→19:01)
[2020-12-16 04:39] VITALS: BP 140/80; PULSE 102; RESP 18; TEMP 37.1; O2SAT 95
[2020-12-16] MEDS: ONDANSETRON 4 MG ODT PO (04:45)
--- NOTE | 2020-12-16 07:17 | P.PN_ITS ---
Subjective Subjective Date Patient Seen: 12/16/20 Time Patient Seen: 07:17 Interval history: POD # 2 S/P ORIF R patella fx still to painful to mobilize but MIRA. Refusing to wear KI when in bed bc of swelling or go to SNF. Verbalized understanding importance of working with PT. Pt is requesting a COVID-19 vaccine. Denies chest pain, shortness of breath, nausea, vomiting or distal right lower extremity numbness, tingling, pain or weakness. Exam Vital Signs (past 8 hours): - 12/15/20 23:25 12/16/20 04:39 Temperature 98.5 F 98.8 F Pulse Rate 80 102 H Respiratory Rate 18 18 Blood Pressure 117/67 140/80 Pulse Oximetry 94 95 Oxygen Delivery Method Room Air Oxygen Flow Rate 0 Narrative Exam Narrative: Well-developed well-nourished 60-year-old female seen resting comfortably in bed without knee immobilizer brace on in no apparent distress. She is alert and oriented x3 with regular heart rate and normal inspiratory effort. Her dressing is dry and intact with mild strike through is moderate swelling at the joint. For distal right lower extremity sensation and strength is grossly intact and there are no signs or symptoms of DVT bilaterally. Objective Labs Result Diagrams: 12/15/20 04:45 12/14/20 04:45 [facility] Medical History Acne (~1969) Allergic rhinitis (Unknown) Chickenpox Chlamydia (~1980) Eczema (Unknown) Endometriosis (~1969) Fibroids (Unknown) Foot pain (Unknown) Fractures (~1961) Genital warts (Unknown) Hemorrhoids (Unknown) IBS (irritable bowel syndrome) (Unknown) Menstrual problem (Unknown) Migraines (Unknown) Ovarian cyst (Unknown) Plantar warts (~1981) Shoulder pain (~2008) Sleep apnea (Unknown) Tinnitus of both ears (Unknown) Vertigo (03/2017) Surgical History History of oral surgery Status post laparoscopy Status post laparoscopy Family History Father Age: 90 Hypertension Grandmother Adult onset diabetes mellitus with ketoacidosis Grandfather No problems noted. Grandmother Cancer Mother No problems noted. Mother Hepatitis C Social History household members: none Smoking Status: Never smoker alcohol intake: never substance use type: does not use Assessment & Plan Post-op Postoperative Procedures: Procedures Operation Date: 12/14/20 12:30 Actual Procedures Side Surgeon p ORIF Patella Fracture Norberto Benoit MD Postoperative status: marginal pain control Postoperative plan: routine post-op care, see orders and ambulate Postoperative plan narrative: -Increase oxycodone to 15 mg q.4 hours as needed with Narcan available and continuous pulse oximetry -weightbearing as tolerated in knee immobilizer - knee immobilizer at all times except for hygiene - Lovenox for 6 weeks for DVT prophylaxis - Orthopedic clinic with Dr. Benoit in 10-14 days Quality VTE Deep Vein Thrombosis/Pulmonary Embolism Present on Admission: No
--- NOTE | 2020-12-16 07:37 | PM.PN.1 ---
Subjective Subjective Date Patient Seen: 12/16/20 Time Patient Seen: 07:37 Interval history: Patient's history reviewed with Dr. Hubbard. Patient not seen by me since 2019. No chronic medical problems no chronic medications who fell fracturing her patella. Patient is now status post surgery to repair same and on the orthopedic service after surgery. (she was admitted to the medicine service for uncertain reasons given her lack of medical problems and clear orthopedic problem, but is now postop and clearly on the surgical service) She is having significant issues with pain and may may not be able to return home as she lives independently with no assistance apparently. Patient reports she is eligible for coronavirus vaccination is requesting same while she is in the hospital if at all possible, specially given the likelihood that she will either be at a long term facility or have staff coming and going from her home in this form of home health services Exam Vital Signs (past 8 hours): - 12/16/20 04:39 Temperature 98.8 F Pulse Rate 102 H Respiratory Rate 18 Blood Pressure 140/80 Pulse Oximetry 95 Oxygen Delivery Method Room Air Oxygen Flow Rate 0 Objective Labs Result Diagrams: 12/15/20 04:45 12/14/20 04:45 [facility] Medical History Acne (~1969) Allergic rhinitis (Unknown) Chickenpox Chlamydia (~1980) Eczema (Unknown) Endometriosis (~1969) Fibroids (Unknown) Foot pain (Unknown) Fractures (~1961) Genital warts (Unknown) Hemorrhoids (Unknown) IBS (irritable bowel syndrome) (Unknown) Menstrual problem (Unknown) Migraines (Unknown) Ovarian cyst (Unknown) Plantar warts (~1981) Shoulder pain (~2008) Sleep apnea (Unknown) Tinnitus of both ears (Unknown) Vertigo (03/2017) Surgical History History of oral surgery Status post laparoscopy Status post laparoscopy Family History Father Age: 90 Hypertension Grandmother Adult onset diabetes mellitus with ketoacidosis Grandfather No problems noted. Grandmother Cancer Mother No problems noted. Mother Hepatitis C Social History household members: none Smoking Status: Never smoker alcohol intake: never substance use type: does not use Assessment & Plan Assessment & Plan narrative: 1. Postop day 2 after repair of fractured patella-continue management as per Orthopedic surgery. This management includes decision making regarding feasibility of patient returning home or needing to go to long term for management due to pain 2. Medical issues-patient with no chronic medical conditions on no chronic medication. This is purely an orthopedic postoperative case. Given that I will sign off the case leaving her in the hands of orthopedic surgery. 3. Coronavirus vaccination-the next coronavirus vaccination Clinic at [facility] will be on and we cannot open a vial of vaccine until that date. If she still here might be feasible to give her a dose. Otherwise if she does go to long term they have a separate contract with the Federal government to administer vaccines for residents and she would be vaccinated in that process there, it is my understanding. However to get her a vaccination when she leaves the hospital while under the care of home health services at home will be more difficult. [facility] currently not allowed to take vaccine out of the hospital setting and so this may become an issue. I have yet to be successful in obtaining a vaccine for any of my homebound patients Quality VTE Deep Vein Thrombosis/Pulmonary Embolism Present on Admission: No
--- NOTE | 2020-12-16 08:31 | PC.NURSE ---
Addendum entered by Jamila Balderrama R.N. 12/16/20 08:44: Patients oxycodone was given at 0648, this is every 4 hours and she will be due around 1015. She has requested tylenol which will be given now. Original Note: Patient is A&Ox3, she states that any kind of pain medication that she has received is only taking the edge off of discomfort to knee. Explained to patient that she will have some discomfort as the medication will not take all of her discomfort away and she is aware of this. Dressing to r.knee is aquacel with immobilizer on, patient does not want to keep this closed as she states that it is uncomfortable. She doesnt want to take suggestions on what we have to offer her, doesnt really want to get out of bed with physical therapy. Just touched base with Claudia from physical therapy. We are going to give patient 10mg of po oxycodone, we did get orders for 15mg if needed. She states that she is scared to take it, so we will stay on the regimen that she is on. We are not going to do anymore iv morphine as and PA state not to give this anymore. Patient has been given the recommendation of going to a SNF but she is refusing, will take home health if her insurance covers this. Patient needs to get up and be moving before she can go home. She has voidedx2 on the bedpan. Eating some breakfast now so that she can take her pain medication around 0945.
[2020-12-16 09:00] VITALS: BP 124/76; PULSE 91; RESP 18; TEMP 36.6; O2SAT 98
[2020-12-16] MEDS: ACETAMINOPHEN 325 MG TABLET 975 MG PO ×3 (09:17→20:41)
[2020-12-16] MEDS: DOCUSATE 100 MG CAPSULE PO ×2 (09:17→20:41)
[2020-12-16] MEDS: ENOXAPARIN 40 MG/0.4 ML SYRINGE SUBCUT (09:18)
[2020-12-16] MEDS: SODIUM CHLORIDE 0.9% FLUSH 10 ML IV (09:19)
--- NOTE | 2020-12-16 11:30 | PT.IIE ---
Current Diagnoses Displaced transverse fracture of right patella, initial encounter for closed fracture (12/13/20) Surgery Performed Operation Date: 12/14/20 12:30 Actual Procedures p ORIF Patella Fracture - Norberto Benoit MD Surgical History (Last Reviewed 12/15/20 @ 10:17 by Chapo Hubbard MD) History of oral surgery Status post laparoscopy Status post laparoscopy Medical History (Last Reviewed 12/14/20 @ 12:04 by Norberto Benoit MD) Acne (~1969) Allergic rhinitis (Unknown) Chickenpox Chlamydia (~1980) Eczema (Unknown) Endometriosis (~1970) Fibroids (Unknown) Foot pain (Unknown) Fractures (~196) Genital warts (Unknown) Hemorrhoids (Unknown) IBS (irritable bowel syndrome) (Unknown) Menstrual problem (Unknown) Migraines (Unknown) Ovarian cyst (Unknown) Plantar warts (~1981) Shoulder pain (~2008) Sleep apnea (Unknown) Tinnitus of both ears (Unknown) Vertigo (03/2017) Physical Therapy Inpatient Evaluation/Re-Eval M1 PT/OT-IP Prior Functional Status Start: 12/15/20 08:37 Freq: NEEDED Status: Active Protocol: Document 12/16/20 11:30 AW (Rec: 12/16/20 12:07 AW [id number]) Medical Review Prior Functional Status Medical History Reviewed Yes Communication WNL. Pt is an effective verbal communicator. Mobility and Gait Independent without assistive device and without meaningful limit. Pt is an active hiker. She did fall at home and sustain a concussion in 2017 but denies any other falls until the current circumstance . Activities of Daily Living and IADL's Independent Social History Household Members none Living Arrangements House Number of Floors (Floors) One Floor Number of Stairs To Enter/Railing? 3 short steps to enter with no rail. 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 She identifies no other source of social support. She has taken COVID precautions very seriously and has severely limited contact with others. She states her bathroom is small and may not fit a walker . Her bed is tall and she plans to sleep on a couch when she goes home. M2 PT-IP Current Condition Start: 12/15/20 08:37 Freq: NEEDED Status: Active Protocol: Document 12/16/20 11:30 AW (Rec: 12/16/20 12:07 AW [id number]) Physical Therapy Current Condition Current Condition Evaluation Date 12/16/20 Treatment Diagnosis s/p ORIF R patella fx; difficulty in walking Onset Date 12/13/20 Precautions Brace knee immobilizer at all times Weight Bearing Status Weight Bearing Status Weight Bear as Tolerated Allowed Weight Bearing Amount (enter % WBAT RLE with knee immobilizer or #) (%) . M3 PT-IP Subjective Start: 12/15/20 08:37 Freq: NEEDED Status: Active Protocol: Document 12/16/20 11:30 AW (Rec: 12/16/20 12:07 AW [id number]) Subjective Physical Therapy Visit Type Type Initial Evaluation Visit Start Time 11:10 Visit Stop Time 11:28 Total Visit Minutes 18 Notes Met with pt twice yesterday but pain limited her to bed mobility only. She was able to tolerate transfers today. Number of ROTOGRAVURE PRESS OPERATOR Visits 0 Physical Therapy Visit Comments Patient Comments Pt is very hesitant but ultimately willing to attempt to moblize. Patient Goals Return home with limited assist. May be open to home health. Therapy Pain Assessment Pain When Pain Assessed During Mobility Pain Present Pain Present Pain Reported Location Right Knee Intensity 8 Scale Used 5/10 at rest; increases with mobility Description Pulling,Sharp,Spasm,With Movement Pain Behaviors Calling Out,Facial Grimacing, Holding Area,Wincing Pain Management Techniques Apply Cold,Distraction, Modification of Treatment,Re- positioning,Timing of Activity with Medications M4 PT-IP Mobility and Gait Start: 12/15/20 08:37 Freq: NEEDED Status: Active Protocol: Document 12/16/20 11:30 AW (Rec: 12/16/20 12:07 AW [id number]) PT-Bed Mobility Assessment Supine to Sit Supine to Sit Minimal Assistance Sit to Supine Sit to Supine Minimal Assistance Scooting Scooting to Edge of Bed Minimal Assistance Scooting Up and Down in Bed Standby Assistance PT-Transfer Assessment Sit to and From Stand Sit to and from Stand Moderate Assistance,1 Person Assistance,Use of Upper Extremities Equipment Transfer Assistive Device Gait Belt,Front Wheeled Walker Orthotic/Prosthetic Devices or Brace: Yes Transfers Transfer Destination Bed,Bedside Commode Transfer Technique Stand Pivot Transfer Ability Level of Assist Moderate Assistance,1 Person Assistance,Use of Upper Extremities Comments Mobility Comments Pt was lying in the bed with KI undone as PT arrived. She has not been OOB in three days . She was able to transition to long-sitting SBA and then required min assist to fasten the knee immoblizer. She pivoted her hips toward the left side of the bed and then required assist to support her operative leg while sitting EOB. She complained of sharp increase in pain. PT educated pt on need to relax the leg to avoid guarding reaction which is intensifying her pain. With PT supporting the RLE, pt was able to stand on her left leg and used the FWW to pivot toward her left mod A x 1. She transferred to the BS and voided. She then transferred back to bed in similar fashion mod A x 1. She required min assist to elevate RLE to the mattress and was then able to bridge and scoot toward HOB SBA. Pt was positioned on the bed with call light and all needs in reach. Gait Assessment Comments Gait Comments Transfer only. Stair Climbing Assessment Comments Stair Climbing Comments Not assessed. PT-Balance Assessment Sitting Balance and Reactions Static Sitting Balance Ability Good Dynamic Sitting Balance Ability Fair Standing Balance and Reactions Static Standing Balance Ability Fair Dynamic Standing Balance Ability Fair Device Used FWW Balance Tests Single Limb Standing Able to stand pivot on LLE for transfers; RLE unable M5 PT-IP Objective Assessments Start: 12/15/20 08:37 Freq: NEEDED Status: Active Protocol: Document 12/16/20 11:30 AW (Rec: 12/16/20 12:07 AW [id number]) Orientation Orientation/Cognition Level of Alertness Alert Orientation Name,Age,Birthday,Month,Date, Year,Day of Week,Place, Situation Safety Awareness Understands Safety Issues Memory Description No Deficits Noted Gross Range of Motion Upper Extremity ROM Assessment Within Functional Limits Lower Extremity ROM Assessment Right Impaired Strength Upper Extremity Strength Assessment Within Functional Limits Lower Extremity Strength Assessment Right Impaired Hip 3/5 Knee NT Ankle 4-/5 Comments Strength Comments LLE grossly 4+/5 to 5/5 Sensation Assessment Sensation Gross Sensation WNL Muscle Tone Muscle Tone WNL Yes M6 PT-IP Treatment Start: 12/15/20 08:37 Freq: NEEDED Status: Active Protocol: Document 12/16/20 11:30 AW (Rec: 03/29/21 12:07 AW [id number]) Physical Therapy Treatment Exercises Exercises Ankle Pumps,Gluteal Sets Education Education Provided Weight Bearing Status,Safety Other Treatments Other Treatment Performed Provided extensive education on anatomy and need to depend on KI and relax the right leg during transfers to help regulate pain. Educated pt on equipment needed if she intends to successfully transition to home. M7 PT-IP Assessment and Plan Start: 12/15/20 08:37 Freq: NEEDED Status: Active Protocol: Document 12/16/20 11:30 AW (Rec: 12/16/20 12:07 AW [id number]) PT Summary Assessment and Plan Potential Rehabilitation Potential Excellent Status of Condition at Evaluation Evolving Summary Impairments Pain,ROM,Strength,Balance,Bed Mobility,Transfers,Gait Assessment Summary Maci adan a 60 yo woman seen for PT evaluation on POD2 following ORIF for right transverse patellar fracture. She is independent in all regards at baseline but currently requiring mod assist for transfers and has been unable to ambulate due to persistent difficulty with pain control. She is not safe for discharge at this time. PT recommending SNF vs home with home health depending on pt progress. Pt is resistant to SNF rehab due to COVID concerns so working toward safe discharge home at this time. Goals Bed Mobility Goal Independent Transfer Goal Independent,Front Wheeled Walker Gait Goal Independent,Front Wheel Walker Gait Distance 50 Other Goals - up/down 3 steps with axillary crutches SBA vs sitting bump SBA Frequency of Treatment Frequency Of Treatment Twice a Day Treatment Plan Physical Therapy Treatment Plan Bed Mobility Training,Transfer Training,Gait Training, Therapeutic Exercise,Balance Retraining,Post Op Education, Discharge Planning,Hot or Cold Pack Other Recommendations and Next Treatment ambulation with FWW; reinforce Focus equipment needs for home Precautions Brace WBAT RLE with knee immobilizer . KI at all times Recommendations To Nursing Amount of Assist Needed 2 Person Assist Discharge Recommendations PT Discharge Recommendations Home with Assistance,Home Health,SNF Rehab Equipment Needed for Home Before BSC, FWW, RTS Discharge Transportation Needs at Discharge Private Vehicle,Wheelchair/ Cabulance
--- NOTE | 2020-12-16 13:46 | CM.DPC ---
DCP Cont: Per Ortho PA, pt likely will be stable for discharge tomorrow either to SNF or home with HH pending pt's progress and preference. Per PT, pt was able to complete bed transfer to commode today and will work with pt further this afternoon. SW met bedside with pt and explained role and she confirms that she has better pain management today but still has not really mobilized. SW discussed that pt likely may be medically stable for lower level of care tomorrow and no longer need hospital level of care. Pt discussed her concerns with safely discharging home alone without DME obtained yet and lack of mobility at this time. SW discussed insurance and acute hospital need and that there is an available option for SNF prior to home and the need for MD to be able to medically justify a continued stay in the hospital for patient to remain here. Pt acknowledged understanding but still surprised with possible d/c tomorrow. Pt continues to be adamant that she is refusing SNF due to her strict COVID precautions over the past year. SW discussed the SNF safety precautions for COVID along with HH safety procedures. Pt states she would be more agreeable to HH even though she has not had anyone in her home for a year. Pt also provided pt with the DME list and discussed [facility] and encouraged her to call [employer] once PT provides recommended DME today and highly encouraged her to begin calling neighbors or local friends to help obtain the DME if her goal is home. Pt states she has not let anyone local know that she is in the hospital but may be willing to contact some people now for assist knowing she could d/c tomorrow. Pt inquired again about getting her initial COVID vaccine while admitted here to the hospital prior to d/c and SW informed her that currently the hospital has not been given an allotment of COVID vaccines for the week and currently not even available and the protocol has not been to vaccinate admitted patients. Pt has no HH preference still so new referral and F2F and orders faxed to [facility] based on vendor calendar. Plan: SW to follow closely for likely d/c tomorrow with pt's preference being home with HH. JACKIE De Oliveira
--- NOTE | 2020-12-16 15:48 | PT.IPTN ---
Current Diagnoses Displaced transverse fracture of right patella, initial encounter for closed fracture (12/13/20) Surgery Performed Operation Date: 12/14/20 12:30 Actual Procedures p ORIF Patella Fracture - Norberto Benoit MD Physical Therapy Treatment Note M2 PT-IP Current Condition Start: 12/15/20 08:37 Freq: NEEDED Status: Active Protocol: Document 12/16/20 11:30 AW (Rec: 12/16/20 12:07 AW [id number]) Physical Therapy Current Condition Current Condition Evaluation Date 12/16/20 Treatment Diagnosis s/p ORIF R patella fx; difficulty in walking Onset Date 12/13/20 Precautions Brace knee immobilizer at all times Weight Bearing Status Weight Bearing Status Weight Bear as Tolerated Allowed Weight Bearing Amount (enter % WBAT RLE with knee immobilizer or #) (%) . M3 PT-IP Subjective Start: 12/15/20 08:37 Freq: NEEDED Status: Active Protocol: Document 12/16/20 15:48 AW (Rec: 12/16/20 16:28 AW [id number]) Subjective Physical Therapy Visit Type Type Treatment Note Visit Start Time 15:06 Visit Stop Time 15:48 Total Visit Minutes 42 Notes Coordinated with RN for pre- medication. Number of SLITTER CUT OFF OPERATOR Visits 0 Physical Therapy Visit Comments Patient Comments I'm feeling a little less anxious since I talked to my landlord and realized a few of my neighbors might be able to help a little bit. Therapy Pain Assessment Pain When Pain Assessed During Mobility Pain Present Pain Present Denied Pain Location Right Knee Intensity 7 Scale Used 5/10 at rest; increases with mobility Description Pulling,Sharp,With Movement Pain Behaviors Facial Grimacing,Guarding, Wincing Pain Management Techniques Apply Cold,Distraction,Re- positioning,Timing of Activity with Medications M4 PT-IP Mobility and Gait Start: 12/15/20 08:37 Freq: NEEDED Status: Active Protocol: Document 12/16/20 15:48 AW (Rec: 12/16/20 16:28 AW [id number]) PT-Bed Mobility Assessment Supine to Sit Supine to Sit Contact Guard Assistance Scooting Scooting to Edge of Bed Contact Guard Assistance Scooting Up and Down in Bed Standby Assistance PT-Transfer Assessment Sit to and From Stand Sit to and from Stand Contact Guard Assistance,Use of Upper Extremities Equipment Transfer Assistive Device Gait Belt,Front Wheeled Walker Orthotic/Prosthetic Devices or Brace: Yes Transfers Transfer Destination Chair,Toilet Transfer Technique pt ambulated with FWW Transfer Ability Level of Assist Minimal Assistance,1 Person Assistance,Use of Upper Extremities Comments Mobility Comments Pt was lying in bed with KI loosened. Pt was able to pull KI up toward groin and tighten with verbal cues. She moved her legs toward left EOB, using BUE to move her RLE. Pt appreciated reduction in sharp pain with KI fitting properly . PT provided cushion on the floor to support RLE in extension as pt sat EOB. She then stood from the bed with FWW CGA and requested to use the toilet. She ambulated without putting any weight on the RLE 20 feet CGA and transferred with use of grab bar min A x 1. After voiding, pt stood from the toilet CGA. With FWW, pt attempted to bear weight on RLE but was only able to tolerate TDWB. She ambulated with FWW 10 feet to the chair CGA. She transferred to the chair CGA and cues to use BUE for controlled descent . Pt requested window seat cushion to be placed under her feet. She was left with call light and all needs in reach. Gait Assessment Gait Gait Assistance Required: Contact Guard Assist,1 Person Assist Distance (Feet) 20 Able to Maintain Weight Bearing Status Yes During Gait Assistive Devices Assistive Device Front Wheeled Walker Orthotic/Prosthetic Devices or Brace: Yes Gait Deviations General Gait Pattern Antalgic,Decreased Stride Length,Decreased Feet Clearance,Flexed Trunk,Step-to Gait Factors Limiting Gait Function Factors Limiting Gait Function Decreased Strength,Limited Range of Motion,Pain,Poor Balance Comments Gait Comments Pt able to ambulate 20 feet in the room with FWW CGA. Instructed pt to use arms as much as possible and to land more softly on her left foot. Stair Climbing Assessment Comments Stair Climbing Comments Not assessed. Pt will need a plan for stairs to access her home. PT-Balance Assessment Sitting Balance and Reactions Static Sitting Balance Ability Good Dynamic Sitting Balance Ability Good Standing Balance and Reactions Static Standing Balance Ability Fair Dynamic Standing Balance Ability Fair Device Used FWW M5 PT-IP Objective Assessments Start: 12/15/20 08:37 Freq: NEEDED Status: Active Protocol: Document 12/16/20 11:30 AW (Rec: 12/16/20 12:07 AW [id number]) Orientation Orientation/Cognition Level of Alertness Alert Orientation Name,Age,Birthday,Month,Date, Year,Day of Week,Place, Situation Safety Awareness Understands Safety Issues Memory Description No Deficits Noted Gross Range of Motion Upper Extremity ROM Assessment Within Functional Limits Lower Extremity ROM Assessment Right Impaired Strength Upper Extremity Strength Assessment Within Functional Limits Lower Extremity Strength Assessment Right Impaired Hip 3/5 Knee NT Ankle 4-/5 Comments Strength Comments LLE grossly 4+/5 to 5/5 Sensation Assessment Sensation Gross Sensation WNL Muscle Tone Muscle Tone WNL Yes M6 PT-IP Treatment Start: 12/15/20 08:37 Freq: NEEDED Status: Active Protocol: Document 12/16/20 15:48 AW (Rec: 12/16/20 16:28 AW [id number]) Physical Therapy Treatment Education Education Provided Weight Bearing Status,Safety Other Treatments Other Treatment Performed Spent 10 minutes discussing equipment needs for home, including w/c with elevated leg rest, FWW (youth size), raised toilet seat with handles, and BSC. M7 PT-IP Assessment and Plan Start: 12/15/20 08:37 Freq: NEEDED Status: Active Protocol: Document 12/16/20 15:48 AW (Rec: 12/16/20 16:28 AW [id number]) PT Summary Assessment and Plan Potential Rehabilitation Potential Good Status of Condition at Evaluation Stable Summary Impairments Pain,ROM,Strength,Balance,Bed Mobility,Transfers,Gait Progress Towards Goals Slow Progress due to Pain Assessment Summary Maci was able to progress her safe mobility at this session including ambulation 20 feet with FWW CGA. Pt states she has neighbors who may be able to obtain D[facility] in anticipation of discharge tomorrow. Advised pt she could invite someone to the hospital for caregiver training but she did not identify anyone who would be able to come. Outside stairs remain an obstacle to the home but pt may be able to recruit someone to wheel her up the stairs in a wheelchair. Will plan to follow up with pt on DME acquisition and continue to progress her mobility independence. Pt plans to discharge home with limited assist and is open to home health recommendation. Goals Bed Mobility Goal Independent Transfer Goal Independent,Front Wheeled Walker Gait Goal Independent,Front Wheel Walker Gait Distance 50 Other Goals - up/down 3 steps with axillary crutches SBA vs sitting bump SBA Frequency of Treatment Frequency Of Treatment Twice a Day Treatment Plan Physical Therapy Treatment Plan Bed Mobility Training,Transfer Training,Gait Training, Therapeutic Exercise,Balance Retraining,Post Op Education, Discharge Planning,Hot or Cold Pack Other Recommendations and Next Treatment ambulation with FWW; reinforce Focus equipment needs for home Precautions Brace knee immobilizer at all times Recommendations To Nursing Amount of Assist Needed 1 Person Assist Discharge Recommendations PT Discharge Recommendations Home with Assistance,Home Health,SNF Rehab Equipment Needed for Home Before BSC, FWW, RTS with handles, w/ Discharge c with elevated leg rest Transportation Needs at Discharge Private Vehicle,Wheelchair/ Cabulance
[2020-12-16 16:07] VITALS: BP 121/68; PULSE 92; RESP 18; TEMP 37; O2SAT 97
--- NOTE | 2020-12-16 23:31 | PC.NURSE ---
VSS. pain 5-8/10, PRN oxycodone 10 mg given with relief. Aquacel dressing to right knee cdi. Compression wrap in place when walking. Call light within reach, calls appropriately. Walking to toilet and using bedpan.
[2020-12-16 23:55] VITALS: O2SAT 97
[2020-12-17] VITALS: BP 120/86; PULSE 82; RESP 17; TEMP 36.6
[2020-12-17] MEDS: OXYCODONE IR 5 MG TABLET 10 MG PO ×3 (01:27→09:50)
[2020-12-17 06:27] VITALS: O2SAT 97
[2020-12-17 07:55] VITALS: BP 133/87; PULSE 95; RESP 14; TEMP 37.2; O2SAT 97
[2020-12-17] MEDS: ACETAMINOPHEN 325 MG TABLET 975 MG PO ×2 (08:40→14:56)
[2020-12-17] MEDS: SODIUM CHLORIDE 0.9% FLUSH 10 ML IV (08:41)
[2020-12-17] MEDS: ENOXAPARIN 40 MG/0.4 ML SYRINGE SUBCUT (08:41)
[2020-12-17] MEDS: DOCUSATE 100 MG CAPSULE 250 MG PO (08:52)
[2020-12-17] MEDS: DOCUSATE 250 MG CAPSULE PO (08:53)
--- NOTE | 2020-12-17 10:18 | PC.NURSE ---
Patient just given oxycodone at 0945. This has been effective for pain control with tylenol. Dressing to R.knee is aquacel with immobilizer on. She has to have this on when she is up ambulating and can have this off when she is in bed. Patient has been using the bedpan to void, she is going to work with physical therapy now and has been ambulating to the bathroom with her. There was some suggestion that patient may go home today, but she does not have help at her home until tomorrow and her mobilization is limited at this time. The patient is hoping to get home health in her home to help out.
--- NOTE | 2020-12-17 10:44 | PT.IPTN ---
Current Diagnoses Displaced transverse fracture of right patella, initial encounter for closed fracture (12/13/20) Surgery Performed Operation Date: 12/14/20 12:30 Actual Procedures p ORIF Patella Fracture - Norberto Benoit MD Physical Therapy Treatment Note M2 PT-IP Current Condition Start: 12/15/20 08:37 Freq: NEEDED Status: Active Protocol: Document 12/16/20 11:30 AW (Rec: 12/16/20 12:07 AW [id number]) Physical Therapy Current Condition Current Condition Evaluation Date 12/16/20 Treatment Diagnosis s/p ORIF R patella fx; difficulty in walking Onset Date 12/13/20 Precautions Brace knee immobilizer at all times Weight Bearing Status Weight Bearing Status Weight Bear as Tolerated Allowed Weight Bearing Amount (enter % WBAT RLE with knee immobilizer or #) (%) . M3 PT-IP Subjective Start: 12/15/20 08:37 Freq: NEEDED Status: Active Protocol: Document 12/17/20 10:44 AW (Rec: 12/17/20 10:59 AW [id number]) Subjective Physical Therapy Visit Type Type Treatment Note Visit Start Time 10:18 Visit Stop Time 10:44 Total Visit Minutes 26 Notes Coordinated with RN for pre- medication. Physical Therapy Visit Comments Patient Comments My landlord is working on [place] today so can't help but will do anything he can for me tomorrow. Therapy Pain Assessment Pain When Pain Assessed During Mobility Pain Present Pain Present Pain Reported Location Right Knee Intensity 7 Pain Behaviors Facial Grimacing,Guarding, Wincing Pain Management Techniques Apply Cold,Distraction,Re- positioning,Timing of Activity with Medications M4 PT-IP Mobility and Gait Start: 12/15/20 08:37 Freq: NEEDED Status: Active Protocol: Document 12/17/20 10:44 AW (Rec: 12/17/20 10:59 AW [id number]) PT-Bed Mobility Assessment Supine to Sit Supine to Sit Contact Guard Assistance Sit to Supine Sit to Supine Standby Assistance Scooting Scooting to Edge of Bed Contact Guard Assistance Scooting Up and Down in Bed Standby Assistance PT-Transfer Assessment Sit to and From Stand Sit to and from Stand Contact Guard Assistance,Use of Upper Extremities Equipment Transfer Assistive Device Gait Belt,Front Wheeled Walker Orthotic/Prosthetic Devices or Brace: Yes Transfers Transfer Destination Chair,Toilet Transfer Technique pt ambulated with FWW Transfer Ability Level of Assist Contact Guard Assistance,Use of Upper Extremities Comments Mobility Comments Pt was lying in bed with KI loosened as PT arrived. She independently pulled the KI up toward groin for improved positioning and fastened the velcro straps. However, straps were not tight enough and PT provided cues for increased tightening to improve immobilization and avoid quad contraction/guarding during movement. Pt then completed supine to sit CGA and stood from the bed CGA. She continued to avoid weightbearing RLE as she ambulated with FWW toward the toilet. She transferred CGA to and from the toilet and completed pericare independently. She then walked to the window seat which was rearranged to simulate her couch at home. She was able to transfer to and from with set up assist only. Pt then stood and ambulated to the opposite side of the bed SBA. She completed sit to supine SBA and was able to reposition herself in the bed. Gait Assessment Gait Gait Assistance Required: Standby Assistance,Contact Guard Assist Distance (Feet) 20 Able to Maintain Weight Bearing Status Yes During Gait Assistive Devices Assistive Device Front Wheeled Walker Orthotic/Prosthetic Devices or Brace: Yes Gait Deviations General Gait Pattern Antalgic,Decreased Stride Length,Decreased Feet Clearance,Flexed Trunk,Step-to Gait Factors Limiting Gait Function Factors Limiting Gait Function Decreased Strength,Limited Range of Motion,Pain,Poor Balance Comments Gait Comments Pt required SBA to CGA for ambulation with FWW. She states her toilet is farther than 20 feet from her couch. PT recommended BSC to set up between couch and toilet. Pt minimally improved her ability to accept weight on the RLE with max cues and encouragement. Stair Climbing Assessment Comments Stair Climbing Comments Not assessed. Pt will need a plan for stairs to access her home. PT-Balance Assessment Sitting Balance and Reactions Static Sitting Balance Ability Good Dynamic Sitting Balance Ability Good Standing Balance and Reactions Static Standing Balance Ability Fair Dynamic Standing Balance Ability Fair Device Used FWW Balance Tests Single Limb Standing Able to stand pivot on LLE for transfers; RLE unable M5 PT-IP Objective Assessments Start: 12/15/20 08:37 Freq: NEEDED Status: Active Protocol: Document 12/16/20 11:30 AW (Rec: 12/16/20 12:07 AW [id number]) Orientation Orientation/Cognition Level of Alertness Alert Orientation Name,Age,Birthday,Month,Date, Year,Day of Week,Place, Situation Safety Awareness Understands Safety Issues Memory Description No Deficits Noted Gross Range of Motion Upper Extremity ROM Assessment Within Functional Limits Lower Extremity ROM Assessment Right Impaired Strength Upper Extremity Strength Assessment Within Functional Limits Lower Extremity Strength Assessment Right Impaired Hip 3/5 Knee NT Ankle 4-/5 Comments Strength Comments LLE grossly 4+/5 to 5/5 Sensation Assessment Sensation Gross Sensation WNL Muscle Tone Muscle Tone WNL Yes M6 PT-IP Treatment Start: 12/15/20 08:37 Freq: NEEDED Status: Active Protocol: Document 12/17/20 10:44 AW (Rec: 12/17/20 10:59 AW [id number]) Physical Therapy Treatment Education Education Provided Weight Bearing Status,Safety Other Treatments Other Treatment Performed Spent time discussing equipment needs. Pt states she has a contact who is trying to borrow items from [employer] today. M7 PT-IP Assessment and Plan Start: 12/15/20 08:37 Freq: NEEDED Status: Active Protocol: Document 12/17/20 10:44 AW (Rec: 12/17/20 10:59 AW [id number]) PT Summary Assessment and Plan Potential Rehabilitation Potential Good Status of Condition at Evaluation Stable Summary Impairments Pain,ROM,Strength,Balance,Bed Mobility,Transfers,Gait Progress Towards Goals Slow Progress due to Pain Assessment Summary Maci continues to improve slowly but mobility remains limited secondary to pain and anxiety. Pt states she has a contact who is attempting to borrow equipment today but she will not have dependable assist at home until tomorrow when her landlord returns from [facility]. Landlord will be able to help her up the stairs which is a barrier to home entry. Pt will need home health and assist for mobility and ADL's/IADLS's at discharge as she is determined to go home. Goals Bed Mobility Goal Independent Transfer Goal Independent,Front Wheeled Walker Gait Goal Independent,Front Wheel Walker Gait Distance 50 Other Goals - up/down 3 steps with axillary crutches SBA vs sitting bump SBA Frequency of Treatment Frequency Of Treatment Twice a Day Treatment Plan Physical Therapy Treatment Plan Bed Mobility Training,Transfer Training,Gait Training, Therapeutic Exercise,Balance Retraining,Post Op Education, Discharge Planning,Hot or Cold Pack Other Recommendations and Next Treatment ambulation with FWW; reinforce Focus equipment needs for home; plan for stairs (w/c backwards ?) Precautions Brace knee immobilizer at all times Other Precautions WBAT RLE with KI Recommendations To Nursing Amount of Assist Needed 1 Person Assist Discharge Recommendations PT Discharge Recommendations Home with Assistance,Home Health,SNF Rehab Equipment Needed for Home Before BSC, FWW, RTS with handles, w/ Discharge c with elevated leg rest Transportation Needs at Discharge Private Vehicle,Wheelchair/ Cabulance
[2020-12-17 11:15] VITALS: BP 123/78; PULSE 91; RESP 16; O2SAT 96
--- NOTE | 2020-12-17 13:11 | P.DS_ITS ---
History of Present Illness History of Present Illness Date Patient Seen: 12/17/20 Time Patient Seen: 13:56 Chief complaint: Fell, knee pain Narrative: Please refer to HPI documented in chart. Discharge Providers Provider Date of admission: 12/13/20 20:10 Discharge Date: 12/17/20 Primary care physician: Danilo Obrien MD Consults: 12/13/20 20:39 Consult to Discharge Planning Routine Comment: will likely need rehab placement postop 12/14/20 12:05 Consult to Anesthesiology Routine Comment: Consulting Provider: Anesthesiologist Reason for consultation: Open reduction internal fixation right patella fracture Has provider been notified: Yes 12/14/20 15:57 Consult to Discharge Planning Routine Comment: Consult to Physical Therapy Evaluate & Treat Comment: Physician Instructions: Evaluate and Treat Consult to Respiratory Therapy Evaluate & Treat Comment: Physician Instructions: Evaluate and treat 12/16/20 14:07 Consult to Home Health Routine Comment: patella fracture Reason For Exam: set up HH, RN, PT, OT, MORTGAGE CLOSING CLERK 12/17/20 08:37 Consult to Home Health Routine Comment: Patella fx Reason For Exam: Set up FWW for home use at discharge. Discharge provider: Dwayne Isaacs PA-C Summary Hospital Course Discharge Diagnosis: Fractured right patella Status post ORIF right patella fracture Hospital Course: Female 60 years old with the above-listed diagnoses consented for the above listed procedure presenting to the OR undergoing said procedure without difficulty or complication and admitted for rehabilitation postoperatively and appropriately convalesced without significant issue at the time of discharge the patient was stable for disposition plan without significant complaints and verbalized understanding of postoperative care instructions and follow-up in clinic for re-evaluation or sooner as needed. Status at Discharge Cognitive/behavioral status at discharge: oriented Functional status at discharge: uses cane/walker Overall status at discharge: patient is progressing back to baseline Time Spent with Patient Time spent: Less than 30 minutes Exam Vital Signs (past 8 hours): - 12/17/20 06:27 12/17/20 07:55 12/17/20 11:15 Temperature 98.9 F Pulse Rate 95 H 91 H Respiratory Rate 14 16 Blood Pressure 133/87 123/78 Pulse Oximetry 97 97 96 Oxygen Delivery Method Room Air Oxygen Flow Rate 0 Narrative Exam Narrative: Female 60 years old seen resting comfortably in no apparent distress, alert and oriented x3. Regular heart rate and inspiratory effort. Dressing clean, dry and intact. Distal affected extremities are neurovascularly intact with no signs or symptoms of DVT. Objective Labs Result Diagrams: 12/15/20 04:45 12/14/20 04:45 [facility] Medical History Acne (~1969) Allergic rhinitis (Unknown) Chickenpox Chlamydia (~1980) Eczema (Unknown) Endometriosis (~1969) Fibroids (Unknown) Foot pain (Unknown) Fractures (~1961) Genital warts (Unknown) Hemorrhoids (Unknown) IBS (irritable bowel syndrome) (Unknown) Menstrual problem (Unknown) Migraines (Unknown) Ovarian cyst (Unknown) Plantar warts (~1981) Shoulder pain (~2008) Sleep apnea (Unknown) Tinnitus of both ears (Unknown) Vertigo (03/2017) Surgical History History of oral surgery Status post laparoscopy Status post laparoscopy Family History Father Age: 90 Hypertension Grandmother Adult onset diabetes mellitus with ketoacidosis Grandfather No problems noted. Grandmother Cancer Mother No problems noted. Mother Hepatitis C Social History household members: none Smoking Status: Never smoker alcohol intake: never substance use type: does not use Discharge Assessment & Plan Assessment and Plan Assessment: Fractured right patella Status post ORIF right patella fracture and stable for discharge from hospital Plan of Treatment: - Discharge from hospital home with home health and if not to a custodial facility - weightbearing as tolerated in knee immobilizer - Wear knee immobilizer at all times except for hygiene - Take Lovenox for 6 weeks for DVT prophylaxis - F/U Orthopedic clinic with Dr. Benoit in 10-14 days Discharge Plan Discharge Plan Patient Disposition: Home Health Service Transfer to: Home Health, Other Provider Discharge Comment: Recommended by PT Discharge orders & Medications Prescriptions: New acetaminophen 325 mg Tablet 975 mg PO TID PRN (Reason: Pain, Moderate) Qty: 60 RF: 0 docusate sodium 250 mg Capsule 250 mg PO BID PRN (Reason: Constipation) Qty: 20 RF: 0 oxycodone 5 mg Tablet 10 mg PO Q4HR PRN (Reason: Pain, Moderate (4-6)) Qty: 60 RF: 0 enoxaparin [Lovenox] 40 mg/0.4 mL Syringe 40 mg SUBCUT DAILY Qty: 39 RF: 0 Continued No Known Home Medications RF: 0 Follow up/Referrals: Danilo Obrien MD [Primary Care Provider] - Norberto Benoit MD [Physician] - (F/U in 2 weeks) Diet/Activity/Treatments Diet: Diet as Tolerated Activity: Wear knee immobilizer brace at all times except for bathing. Cold/Heat Therapy: Ice 20 minutes per hour as tolerated. Other treatments: Elevate knee above heart level. Skin/Wound/Dressing Care Report to your healthcare provider any signs of infection, such as:: chills, fever, night sweats, increased pain, unusual drainage and unusual redness Dressing: Keep dressing clean, dry, and intact call as needed if soiled or saturated. Visit Report/Discharge Packet Instructions: DI for Wrist Sprain, DI for Patella Fracture, DI for Open Reduction Internal Fixation Surgery, DI for Prescription Opioid Use Stand Alone Forms: Surgery Discharge Discharge Data Primary Care Provider: Danilo Obrien Quality VTE Deep Vein Thrombosis/Pulmonary Embolism Present on Admission: No
--- NOTE | 2020-12-17 13:50 | PT.IPTN ---
Current Diagnoses Displaced transverse fracture of right patella, initial encounter for closed fracture (12/13/20) Surgery Performed Operation Date: 12/14/20 12:30 Actual Procedures p ORIF Patella Fracture - Norberto Benoit MD Physical Therapy Treatment Note M2 PT-IP Current Condition Start: 12/15/20 08:37 Freq: NEEDED Status: Active Protocol: Document 12/16/20 11:30 AW (Rec: 12/16/20 12:07 AW [id number]) Physical Therapy Current Condition Current Condition Evaluation Date 12/16/20 Treatment Diagnosis s/p ORIF R patella fx; difficulty in walking Onset Date 12/13/20 Precautions Brace knee immobilizer at all times Weight Bearing Status Weight Bearing Status Weight Bear as Tolerated Allowed Weight Bearing Amount (enter % WBAT RLE with knee immobilizer or #) (%) . M3 PT-IP Subjective Start: 12/15/20 08:37 Freq: NEEDED Status: Active Protocol: Document 12/17/20 13:50 AB (Rec: 12/17/20 16:00 AB [id number]) Subjective Physical Therapy Visit Type Type Treatment Note Visit Start Time 13:50 Visit Stop Time 14:39 Total Visit Minutes 49 Number of MUD ANALYSIS OPERATOR Visits 0 Physical Therapy Visit Comments Patient Comments pt requesting use the toilet. Therapy Pain Assessment Pain When Pain Assessed During Mobility Pain Present Pain Present Pain Reported Location Right Knee Scale Used pain scale not stated Pain Management Techniques Elevation,Modification of Treatment,Re-positioning, Timing of Activity with Medications M4 PT-IP Mobility and Gait Start: 12/15/20 08:37 Freq: NEEDED Status: Active Protocol: Document 12/17/20 13:50 AB (Rec: 12/17/20 16:00 AB [id number]) PT-Bed Mobility Assessment Supine to Sit Supine to Sit Standby Assistance Sit to Supine Sit to Supine Standby Assistance PT-Transfer Assessment Sit to and From Stand Sit to and from Stand Standby Assistance,Contact Guard Assistance,1 Person Assistance,Use of Upper Extremities Equipment Transfer Assistive Device Gait Belt,Front Wheeled Walker Orthotic/Prosthetic Devices or Brace: Yes Transfers Transfer Destination Toilet Transfer Technique ambulated using FWW Transfer Ability Level of Assist Standby Assistance,Contact Guard Assistance,1 Person Assistance,Use of Upper Extremities Comments Mobility Comments pt completed supine to sit SBA . pt tends to hold RLE up with B hands. educated on scooting on EOB and can have R foot down on floor. pt completed sit to stand SBA to CGA and ambulated to the toilet using FWW SBA to CGA. pt tends not to put weight on RLE and educated on WBAT. pt directs her own care and needs education and thorough explanation on tasks to be completed. pt ambulated out of the toilet SBA and sat on EOB. from EMR note, pt is not sure if FWW will fit inside the toilet and educated on taking steps sideways for FWW to fit and pt agreed. informed pt regarding stair climbing as pt has 3 steps to enter. stated that she has a R sided wall , no rails and her landlord will help her get into the house but is not available today to assist her. educated pt on safety and stair climbing training. pt initially hesistant but educated on safety and agreed. pt ambulated towards platform set using FWW SBA. provided SPC to use and INFECTIOUS DISEASE PHYSICIAN on R side and completed up/down step min A. completed again but with pt holding on to R side wall and SPC and completed min A and cues. pt ambulated back to bed using FWW SBA. completed sit to supine SBA. positioned in bed . call light and table within reach. informed pt regarding equipement needs and stated that she does not have any AD at home and there is nobody that can get her equipement. asked pt if she can ask her landlord to buy a SPC for her and stated that she cannot ask that from him. informed pt that FWW will be dispensed and [employer] company will go through her insurance for FWW coverage but can only approve one AD. educated pt on options: SPC, INFECTIOUS DISEASE PHYSICIAN from the landlord or can fold FWW and use as support. pt stated that she does not think FWW will be safe for her . informed pt that PT is just giving her options as it is limited right now considering her situation. pt understood. Gait Assessment Gait Gait Assistance Required: Standby Assistance,Contact Guard Assist Distance (Feet) 20 Able to Maintain Weight Bearing Status Yes During Gait Assistive Devices Assistive Device Gait Belt,Front Wheeled Walker Orthotic/Prosthetic Devices or Brace: No Gait Deviations General Gait Pattern Antalgic,Decreased Stride Length,Decreased Feet Clearance,Step-to Gait Factors Limiting Gait Function Factors Limiting Gait Function Decreased Activity Tolerance, Decreased Strength,Limited Range of Motion,Pain,Poor Balance,Poor Safety Awareness Stair Climbing Assessment Evaluation Level of Assist On Stairs Minimal Assistance Devices Stair Climbing Assistive Devices Straight Cane Technique/Endurance Stair Climbing Direction Ascend and Descend Stair Climbing Technique Step to Step Number of Steps Climbed 1 Stair Climbing Set # Repetitions (reps) 2 Comments Stair Climbing Comments pls refer to mobility section for details M5 PT-IP Objective Assessments Start: 12/15/20 08:37 Freq: NEEDED Status: Active Protocol: Document 12/16/20 11:30 AW (Rec: 12/16/20 12:07 AW [id number]) Orientation Orientation/Cognition Level of Alertness Alert Orientation Name,Age,Birthday,Month,Date, Year,Day of Week,Place, Situation Safety Awareness Understands Safety Issues Memory Description No Deficits Noted Gross Range of Motion Upper Extremity ROM Assessment Within Functional Limits Lower Extremity ROM Assessment Right Impaired Strength Upper Extremity Strength Assessment Within Functional Limits Lower Extremity Strength Assessment Right Impaired Hip 3/5 Knee NT Ankle 4-/5 Comments Strength Comments LLE grossly 4+/5 to 5/5 Sensation Assessment Sensation Gross Sensation WNL Muscle Tone Muscle Tone WNL Yes M6 PT-IP Treatment Start: 12/15/20 08:37 Freq: NEEDED Status: Active Protocol: Document 12/17/20 13:50 AB (Rec: 12/17/20 16:00 AB [id number]) Physical Therapy Treatment Education Education Provided Precautions,Weight Bearing Status,Safety M7 PT-IP Assessment and Plan Start: 12/15/20 08:37 Freq: NEEDED Status: Active Protocol: Document 12/17/20 13:50 AB (Rec: 12/17/20 16:00 AB [id number]) PT Summary Assessment and Plan Potential Rehabilitation Potential Good Summary Impairments Pain,ROM,Strength,Balance, Coordination,Sensation,Tone, Cognition,Bed Mobility, Transfers,Gait,Activity Tolerance Progress Towards Goals Slow Progress due to Pain,Slow Progress due to Medical Issues Assessment Summary pt requiring min A with stair climbing and SBA to CGA with ambulation using FWW. pt lives alone and without assistance at home but refused to go SNF. pt will need HHPT . Goals Bed Mobility Goal Independent Transfer Goal Independent,Front Wheeled Walker Gait Goal Independent,Front Wheel Walker Gait Distance 50 Other Goals - up/down 3 steps with axillary crutches SBA vs sitting bump SBA Days to Meet Goals 5 Frequency of Treatment Frequency Of Treatment Twice a Day Treatment Plan Physical Therapy Treatment Plan Bed Mobility Training,Transfer Training,Gait Training, Therapeutic Exercise,Balance Retraining,Post Op Education, Discharge Planning,Hot or Cold Pack Precautions Brace knee immobilizer at all times Other Precautions WBAT RLE with knee immobilizer Recommendations To Nursing Amount of Assist Needed 1 Person Assist Discharge Recommendations PT Discharge Recommendations Home with Assistance,Home Health,SNF Rehab Equipment Needed for Home Before SPC Discharge Transportation Needs at Discharge Private Vehicle,Wheelchair/ Cabulance
--- NOTE | 2020-12-17 15:36 | CM.DPC ---
DCP Discharge Per Ortho PA, pt medically stable to d/c today if safe plan to d/c home. Per PT, pt has made progress but recommending assist to get pt safely up her 3 stairs with no rail. SW met bedside with pt and confirmed that her friend will be picking up recommending DME from [employer] today and her landlord will be the one that can physically assist pt in getting into her house but he is [place] [facility] and unable to provide transport and assist until tomorrow 12/18/20. SW discussed that if MD not agreeable with cancelling discharge then she may be liable for her hospital stay after midnight. Pt states she is unwilling to ask other friends or call her landlord back to inquire about transport and assist this evening and still adamantly refusing SNF. SW and pt discussed other possible options of taxi and w/c van but neither assist pt into their home and up steps, they only transport to the residence sidewalk. SW discussed BLS non-emergent transport that can assist pt into the house but would not meet criteria to be covered by insurance and would likely be close to $1000 out of pocket and not reasonable option. SW updated RN and PA had been agreeable to cancel d/c if no safe option to safely get home. SW requested RN cancel d/c order with plan of d/c tomorrow. Plan: SW to follow for plan of pt d/c home tomorrow via landlord POV and assist inside and [facility] to follow. JACKIE De Oliveira
[2020-12-17 15:41] VITALS: BP 128/79; PULSE 95; RESP 16; TEMP 36.9; O2SAT 97
--- NOTE | 2020-12-17 16:42 | PC.NURSE ---
Addendum entered by Velma Trejo R.N. 12/17/20 16:59: Pt escorted by staff via W/C to waiting taxi Original Note: Pt recieved discharge instructions w/understanding RX given to pt. Waiting for taxi for D/C
--- NOTE | 2020-12-18 07:34 | CM.DPC ---
DCP Discharge Home with HH Per RN, after SW shift yesterday evening 12/17/20 after bedside discussion between SW and pt in the afternoon pt ended up calling additional local supports and found a friend who could assist her into her house after taxi transported her home. RN was able to coordinate a [employer] taxi time for pt around her friend's ability to assist and pt discharged home. SW faxed d/c summary to [facility] this morning and F2F and MD orders previously faxed in referral. RAIN left msg with [facility] regarding pt's d/c home last night. Plan: Patient discharged home with friend last night and [facility] to follow. JACKIE De Oliveira
== END 2020-12-17 16:45 | disposition home health service (06) | DRG 517 ==
LOC: ED 20:06 → ICU 12-14 09:18 → AC 12-15 14:34 → ICU 12-15 15:18
PROVIDERS: Admitting Provider Family Medicine; Emergency Provider Nurse Practitioner Family; PCP Internal Medicine; Referring Provider Emergency Medicine; Visit Provider Orthopaedic Surgery Adult Reconstructive Orthopaedic Surgery
PROC: 0QSD04Z Reposition Right Patella with Internal Fixation Device, Open Approach (ICD-10-PCS; principal; 2020-12-14 12:30)
DX: S82.031A Displaced transverse fracture of right patella, initial encounter for closed fracture (principal); W18.30XA Fall on same level, unspecified, initial encounter; Y92.838 Other recreation area as the place of occurrence of the external cause; S69.92XA Unspecified injury of left wrist, hand and finger(s), initial encounter; S69.91XA Unspecified injury of right wrist, hand and finger(s), initial encounter; Z20.822 Contact with and (suspected) exposure to COVID-19
CPT/HCPCS: 36415; 64450; 73110; 73560; 76000; 80048; 80053; 85025; 85027; 85610; 85730; 87635; 87797; 94760; 96374; 97116; 97161; 97530; 97535; 99232; 99284; J0690; J1100; J1170; J1650; J1885; J2250; J2270; J2405; J2704; J3010

== ENCOUNTER → 2021-01-29 10:15 | Outpatient (CLI) | payer OTHER, SELFPAY ==
[2020-12-13 21:00] VITALS: BMI 19.1
[2021-01-29] MEDS: COVID-19 VACC #1, MRNA(MOD) 100 MCG/0.5 ML VIAL IM (10:30)
== END ==
PROVIDERS: PCP Internal Medicine; Visit Provider Internal Medicine
DX: Z23 Encounter for immunization (principal)
CPT/HCPCS: 0011A; 91301

== ENCOUNTER → 2021-02-28 10:37 | Outpatient (CLI) | payer OTHER, SELFPAY ==
[2020-12-13 21:00] VITALS: BMI 19.1
[2021-02-28] MEDS: COVID-19 VACC #2, MRNA(MOD) 100 MCG/0.5 ML VIAL IM (10:46)
== END ==
PROVIDERS: PCP Internal Medicine; Visit Provider Internal Medicine
DX: Z23 Encounter for immunization (principal)
CPT/HCPCS: 0012A; 91301

== ENCOUNTER → 2021-08-28 12:01 | Outpatient (CLI) | payer OTHER, SELFPAY ==
[2020-12-13 21:00] VITALS: BMI 19.1
--- NOTE | 2021-08-28 12:03 | DI.MG.S_ITS ---
BILATERAL DIGITAL SCREENING MAMMOGRAM 3D/2D WITH CAD: 08/28/2021 CLINICAL: Routine screening. Comparison is made to exam dated: 12/16/2018 [facility]. The tissue of both breasts is heterogeneously dense. This may lower the sensitivity of mammography. Current study was also evaluated with a Computer Aided Detection (CAD) system. There are benign calcifications in both breasts. No significant masses, calcifications, or other findings are seen in either breast. There has been no significant interval change. IMPRESSION: BENIGN There is no mammographic evidence of malignancy. A 1 year screening mammogram is recommended. This exam was interpreted at Station ID: [id number]. NOTE: For mammograms, a report in lay terms will be sent to the patient. Approximately 15% of breast malignancies will not be visualized mammographically. In the management of a palpable breast mass, a negative mammogram must not discourage biopsy of a clinically suspicious lesion. Electronically Signed By: Aftab Carpenter acr/americo:08/28/2021 15:35:42 letter sent: Normal Exam ACR BI-RADS Category 2: Benign Finding(s) 3342F
== END ==
PROVIDERS: PCP Internal Medicine; Referring Provider Obstetrics & Gynecology; Visit Provider Obstetrics & Gynecology
DX: Z12.31 Encounter for screening mammogram for malignant neoplasm of breast (principal)
CPT/HCPCS: 77063; 77067

== ENCOUNTER → 2021-09-02 10:08 | Outpatient (CLI) | payer OTHER, SELFPAY ==
[2020-12-13 21:00] VITALS: BMI 19.1
== END ==
PROVIDERS: PCP Internal Medicine; Referring Provider Obstetrics & Gynecology; Visit Provider Obstetrics & Gynecology
DX: M81.0 Age-related osteoporosis without current pathological fracture (principal); Z78.0 Asymptomatic menopausal state; Z79.3 Long term (current) use of hormonal contraceptives
CPT/HCPCS: 77080

== ENCOUNTER → 2021-09-03 11:56 | Outpatient (CLI) | payer OTHER, SELFPAY ==
[2020-12-13 21:00] VITALS: BMI 19.1
[2021-09-04 12:06] LABS: Fecal Immunochemical Test Negative (Negative)
== END ==
PROVIDERS: PCP Internal Medicine; Referring Provider Internal Medicine; Visit Provider Internal Medicine
DX: Z12.11 Encounter for screening for malignant neoplasm of colon (principal)
CPT/HCPCS: 82274

== ENCOUNTER → 2021-09-04 07:05 | Outpatient (CLI) | payer OTHER, SELFPAY ==
[2020-12-13 21:00] VITALS: BMI 19.1
[2021-09-04 08:19] LABS: Add Manual Diff / Slide Review NO; Basophils Absolute Auto 100 /uL (0-100); Basophils Percent Auto 1.4 % (0-2); Eosinophils Absolute Auto 100 /uL (0-450); Eosinophils Percent Auto 2.4 % (2-4); Hematocrit 41.2 % (36-46); Lymphocytes Absolute Auto 1500 /uL (1100-4500); Lymphocytes Percent Auto 39.1 % (25-40); Mean Corpuscular Hemoglobin 28.2 PG (26-34); Mean Corpuscular Volume 82.9 fL (80-100); Monocytes Absolute Auto 200 /uL (0-900); Monocytes Percent Auto 6.1 % (3-14); Neutrophils Absolute Auto 1900 /uL (1500-7000); Platelet Count 210 X10^3/uL (150-400); Red Blood Cell Count 4.97 X10^6/uL (4.0-5.2); Red Cell Distribution Width 13.1 % (11.6-14.8); White Blood Cell Count 3.8 X10^3/uL (4.5-11.0)
[2021-09-04 08:43] LABS: Alanine Aminotransferase 10 IU/L (<35); Albumin 4.8 g/dL (3.5-5.0); Alkaline Phosphatase 42 U/L (38-126); Aspartate Aminotransferase 22 IU/L (14-36); BUN Creatinine Ratio 11.4 (6-22); Bilirubin Total 0.8 mg/dL (0.2-1.3); Blood Urea Nitrogen 8 mg/dL (7-17); Calcium 10.1 mg/dL (8.4-10.2); Carbon Dioxide 28 mmol/L (22-32); Chloride 105 mmol/L (98-107); Cholesterol 233 mg/dL (140-199); Estimated Glomerular Filt Rate > 60.0 mL/min (>60); Globulin 2.4 g/dL (1.7-4.1); Glucose 90 mg/dL (80-110); HDL Cholesterol 94 mg/dL (40-60); HEMOLYSIS < 15 (0-50); LDL Cholesterol Calculated 115 mg/dL (<100); Sodium 141 mmol/L (137-145); Total Protein 7.2 g/dL (6.3-8.2); Triglycerides 118 mg/dL (35-150)
[2021-09-04 09:12] LABS: TSH w/ Reflex to FT4 2.53 uIU/mL (0.47-4.68)
== END ==
PROVIDERS: PCP Internal Medicine; Referring Provider Internal Medicine; Visit Provider Internal Medicine
DX: K58.9 Irritable bowel syndrome, unspecified (principal); R00.2 Palpitations; Z13.6 Encounter for screening for cardiovascular disorders; Z13.220 Encounter for screening for lipoid disorders
CPT/HCPCS: 36415; 80053; 80061; 84443; 85025

== ENCOUNTER → 2021-09-22 11:39 | Outpatient (CLI) | payer OTHER, SELFPAY ==
[2020-12-13 21:00] VITALS: BMI 19.1
--- NOTE | 2021-10-09 08:08 | PM.CARDMON.1 ---
Mathematics Education Professor Report Referral & Results Date Patient Seen: 09/23/21 Requesting provider: Danilo Obrien Indication: Palpitations Duration of monitoring (days): 7 Diary information: There were 2 patient triggered events and 2 patient diary entries Patient triggered events were associated with (within 45 seconds) sinus rhythm and SVT Patient diary events were associated with sinus rhythm only Data: Minimum heart rate identified was 45 beats per minute at 02:16 on 09/25/2021 Maximum sinus heart rate was 143 beats per minute at 11:27 on 09/27/2021 Maximum overall heart rate was 200 beats per minute at 15:28 on 09/25/2021 during a run of SVT There were 2 runs of SVT the fastest being the 6 beat run noted above at 200 beats per minute. This was also the longest run Less than 1% of identified beats were ventricular or supraventricular ectopic in origin, which would classify them as rare. Impression: 7 day monitor technician demonstrating very rare very brief runs of SVT as a possible source of sense of palpitations otherwise only rare simple PACs and PVCs identified based on patient events not associated with symptoms. Clinical correlation suggested
== END ==
PROVIDERS: PCP Internal Medicine; Referring Provider Internal Medicine; Visit Provider Internal Medicine
DX: R00.2 Palpitations (principal)
CPT/HCPCS: 93242; 93244

== ENCOUNTER → 2023-01-26 08:11 | Outpatient (CLI) | payer OTHER, SELFPAY ==
[2022-12-21 15:16] VITALS: BMI 19.1
[2023-01-27 14:51] LABS: Fecal Immunochemical Test Negative (Negative)
== END ==
PROVIDERS: PCP Internal Medicine; Referring Provider Internal Medicine; Visit Provider Internal Medicine
DX: Z12.11 Encounter for screening for malignant neoplasm of colon (principal)
CPT/HCPCS: 82274

== ENCOUNTER → 2023-11-11 07:41 | Outpatient (CLI) | payer OTHER, SELFPAY ==
[2022-12-21 15:16] VITALS: BMI 19.1
--- NOTE | 2023-11-11 07:43 | DI.US.S_ITS ---
PROCEDURE: US PELVIC COMPLETE INDICATIONS: PRESSURE/DISCOMFORT WITH SITTING. H/O ENDOMETRIOSIS/FIBROIDS TECHNIQUE: Real-time scanning was performed of the pelvic organs, with image documentation. Additional endovaginal scanning was necessary due to incomplete visualization of the adnexal and endometrial structures by transabdominal scanning. COMPARISON: None. FINDINGS: Uterus: Uterus is anteverted and normal in size at 6.0 x 4.6 x 3.3 cm. The myometrium is heterogeneous. The endometrium measures 2.4 mm combined thickness. There is trace fluid in the endometrial canal. Multiple uterine fibroids are visualized as follows: -right mid intramural fibroid measuring 2.7 x 2.4 x 2.2 cm -right posterior intramural fibroid measuring 1.9 x 2.3 x 1.6 cm -mid posterior intramural fibroid measuring 2.2 x 0.9 x 1.5 cm -mid submucosal fibroid measuring 0.8 x 1.0 x 1.1 cm Ovaries: The right ovary measures 1.2 x 1.6 x 1.0 cm, with a calculated ovarian volume of 1.0 cc. The left ovary measures 1.0 x 1.5 x 0.7 cm, with a calculated ovarian volume of 0.5 cc. The ovaries have a normal sonographic appearance. Less than 12 follicles can be seen in each ovary. No adnexal masses are seen. Other: No pathologic free abdominal or pelvic fluid. IMPRESSION: Multiple uterine fibroids as described above. Approved by: Iqra Carranza M.D. on 11/11/2023 at 16:05
== END ==
PROVIDERS: PCP Internal Medicine; Referring Provider Obstetrics & Gynecology; Visit Provider Obstetrics & Gynecology
DX: D25.1 Intramural leiomyoma of uterus (principal); D25.0 Submucous leiomyoma of uterus; R10.2 Pelvic and perineal pain
CPT/HCPCS: 76830; 76856

== ENCOUNTER → 2023-11-12 09:41 | Outpatient (CLI) | payer OTHER, SELFPAY ==
[2022-12-21 15:16] VITALS: BMI 19.1
--- NOTE | 2023-11-12 09:43 | DI.RAD.S_ITS ---
Bone Density Report Name: WOODROW RODRIGUEZ Age: 63 Sex: Female Ethnicity: White Date of : 1960 Indication: postmenopausal osteoporosis; Referring Provider: KAIN ZAMORA Study: Bone densitometry was performed. Exam Date: November 12, 2023 Accession number: [id number] Bone Density: Region BMD T-score Z-score Classification AP Spine(L1-L4) 0.688 -3.3 -1.6 Osteoporosis Femoral Neck (Left) 0.494 -3.2 -1.8 Osteoporosis Total Hip (Left) 0.606 -2.8 -1.6 Osteoporosis Femoral Neck (Right) 0.465 -3.5 -2.0 Osteoporosis Total Hip (Right) 0.563 -3.1 -2.0 Osteoporosis Total Hip Mean 0.584 -3.0 -1.8 Osteoporosis World Health Organization criteria for BMD impression classify patients as: Normal (T-score at or above -1.0), Osteopenia (T-score between -1.0 and -2.5), or Osteoporosis (T-score at or below -2.5). 10-year Fracture Risk: FRAX not reported because: Some T-score for Spine Total or Hip Total or Femoral Neck at or below -2.5 Previous Exams: -- Region Exam Age BMD T-score BMD Change BMD Change Date g/cm2 vs Baseline vs Previous -- AP Spine (L1-L4) 11/12/2023 63 0.688 -3.3 0.019 (2.8%)# 0.019 (2.8%)# 09/02/2021 61 0.669 -3.4 Total Hip(Left) 11/12/2023 63 0.606 -2.8 0.126 (26.2%)# 0.126 (26.2%)# 09/02/2021 61 0.480 -3.8 Total Hip(Right) 11/12/2023 63 0.563 -3.1 0.083 (17.2%)# 0.083 (17.2%)# 09/02/2021 61 0.481 -3.8 -- *Denotes significance at 95% confidence level, LSC for AP Spine = 0.022 g/cm2, LSC for Total Hip = 0.027 g/cm2 # Denotes dissimilar scan types or analysis methods Impression: The patient has osteoporosis, based on the Right Femoral Neck T-score. No significant bone loss was observed. Discussion: HIGH RISK OF FRACTURE. BONE DENSITY IS UNDESIRABLY LOW AT ONE OR MORE SKELETAL SITES, CONSISTENT WITH OSTEOPOROSIS. ALSO, BONE DENSITY IS LOWER THAN EXPECTED FOR AGE AND SEX AT ONE OR MORE SKELETAL SITES; RECOMMEND A DILIGENT SEARCH FOR SECONDARY CAUSES OF BONE LOSS. This patient's lowest T-score meets the World Health Organization's (WHO) criteria for osteoporosis at one or more sites (T-score -2.5 or below). In untreated patients, the risk of osteoporotic fracture increases approximately two-fold for each 1.0 SD decrease in T-score. Low bone density is not the only risk factor for fracture; also consider factors such as patient's age, frailty or poor health, risk of falling, risk of injury, previous osteoporotic fracture, family history of osteoporosis, cigarette smoking, low body weight, etc. Not everyone with low bone mineral density has osteoporosis; osteomalacia and other metabolic bone disorders should also be considered. Patients who have osteoporosis should be evaluated for specific diseases and conditions (secondary causes) that may cause or contribute to bone loss. The [place] [employer] Endocrinologists (AACE) and National Osteoporosis Foundation (NOF) recommend pharmacologic intervention for all postmenopausal women whose T-score is in this range. Also, this patient's bone mineral density is below the range considered normal for healthy age-, sex-, and race-matched controls at least one site (Z-score -2.0 or below). This warrants careful evaluation for diseases and conditions that may contribute to accelerated bone loss. The patient should follow a healthful lifestyle (good nutrition with adequate calcium and vitamin D, and appropriate weight-bearing exercise). Follow-Up: Consider a repeat BMD and Vertebral Fracture Assessment (VFA) exam in 2 years or sooner if medically necessary, to reassess this patient's status. Reported by: ESTEFANIA SORIA M.D. on 11/12/2023 2:27:00 PM.
== END ==
PROVIDERS: PCP Internal Medicine; Referring Provider Internal Medicine; Visit Provider Internal Medicine
DX: M81.0 Age-related osteoporosis without current pathological fracture (principal)
CPT/HCPCS: 77080

== ENCOUNTER → 2023-11-18 14:55 | Outpatient (CLI) | payer OTHER, SELFPAY ==
[2022-12-21 15:16] VITALS: BMI 19.1
--- NOTE | 2023-11-18 | DI.MG.S_ITS ---
BILATERAL DIGITAL SCREENING MAMMOGRAM 3D/2D WITH CAD: 11/18/2023 CLINICAL: Routine screening. Comparison is made to exams dated: 08/28/2021 mammogram and 12/16/2018 mammogram - [facility]. Both breasts are heterogeneously dense, which may obscure small masses (category c / 51-75% glandular tissue). Current study was also evaluated with a Computer Aided Detection (CAD) system. There are benign calcifications in both breasts. No significant masses, calcifications, or other findings are seen in either breast. There has been no significant interval change. IMPRESSION: BENIGN There is no mammographic evidence of malignancy. A 1 year screening mammogram is recommended. Based on the Tyrer Cuzick model (a risk assessment model) the patient's lifetime risk is 9.5% and her 10 year risk is 4.2%. According to the ACR, ACS, and NCCN guidelines, an annual breast MRI exam along with mammogram is recommended if the patient's lifetime risk is 20% or greater. This exam was interpreted at Station ID: [id number]. NOTE: For mammograms, a report in lay terms will be sent to the patient. Approximately 15% of breast malignancies will not be visualized mammographically. In the management of a palpable breast mass, a negative mammogram must not discourage biopsy of a clinically suspicious lesion. Electronically Signed By: Neo onofre/americo:11/18/2023 15:59:17 letter sent: Normal Exam ACR BI-RADS Category 2: Benign Finding(s) 3342F
== END ==
LOC: MAMMO 14:56
PROVIDERS: PCP Internal Medicine; Referring Provider Internal Medicine; Visit Provider Internal Medicine
DX: Z12.31 Encounter for screening mammogram for malignant neoplasm of breast (principal); R92.333 Mammographic heterogeneous density, bilateral breasts
CPT/HCPCS: 77063; 77067

== ENCOUNTER → 2024-01-25 10:21 | Outpatient (CLI) | payer OTHER, SELFPAY ==
[2022-12-21 15:16] VITALS: BMI 19.1
[2024-01-26 11:41] LABS: Fecal Immunochemical Test Negative (Negative)
== END ==
PROVIDERS: PCP Internal Medicine; Referring Provider Internal Medicine; Visit Provider Internal Medicine
DX: Z12.11 Encounter for screening for malignant neoplasm of colon (principal); Z13.6 Encounter for screening for cardiovascular disorders; Z13.1 Encounter for screening for diabetes mellitus; Z13.220 Encounter for screening for lipoid disorders; D64.9 Anemia, unspecified
CPT/HCPCS: 82274

== ENCOUNTER → 2024-01-26 06:49 | Outpatient (CLI) | payer OTHER, SELFPAY ==
[2022-12-21 15:16] VITALS: BMI 19.1
[2024-01-26 08:05] LABS: Add Manual Diff / Slide Review NO; Basophils Absolute Auto 100 /uL (0-100); Basophils Percent Auto 1.3 % (0-2); Eosinophils Absolute Auto 100 /uL (0-450); Eosinophils Percent Auto 2.5 % (2-4); Hematocrit 39.8 % (36-46); Hemoglobin 13.5 g/dL (12.0-16.0); Lymphocytes Absolute Auto 1600 /uL (1100-4500); Mean Corpuscular HGB Conc 33.8 % (30-36); Mean Corpuscular Hemoglobin 28.6 PG (26-34); Mean Corpuscular Volume 84.6 fL (80-100); Monocytes Absolute Auto 300 /uL (0-900); Monocytes Percent Auto 6.8 % (3-14); Neutrophils Absolute Auto 2400 /uL (1500-7000); Neutrophils Percent Auto 54.4 % (50-75); Platelet Count 213 X10^3/uL (150-400); Red Cell Distribution Width 13.5 % (11.6-14.8); White Blood Cell Count 4.4 X10^3/uL (4.5-11.0)
[2024-01-26 08:41] LABS: Alanine Aminotransferase 16 IU/L (<35); Albumin 4.4 g/dL (3.5-5.0); Albumin Globulin Ratio 1.8 (1.0-2.8); Alkaline Phosphatase 41 U/L (38-126); Aspartate Aminotransferase 25 IU/L (14-36); BUN Creatinine Ratio 11.1 (6-22); Bilirubin Total 0.6 mg/dL (0.2-1.3); Blood Urea Nitrogen 8 mg/dL (7-17); Calcium 9.9 mg/dL (8.4-10.2); Carbon Dioxide 28 mmol/L (22-32); Chloride 106 mmol/L (98-107); Cholesterol 220 mg/dL (140-199); Estimated Glomerular Filt Rate > 60 mL/min (>60); Globulin 2.4 g/dL (1.7-4.1); Glucose 83 mg/dL (80-110); HDL Cholesterol 92 mg/dL (40-60); HEMOLYSIS < 15 (0-50); LDL Cholesterol Calculated 110 mg/dL (<100); Potassium 3.8 mmol/L (3.4-5.1); Sodium 139 mmol/L (137-145); Total Protein 6.8 g/dL (6.3-8.2); Triglycerides 92 mg/dL (35-150)
[2024-01-26 09:09] LABS: TSH w/ Reflex to FT4 2.74 uIU/mL (0.47-4.68)
== END ==
PROVIDERS: PCP Internal Medicine; Referring Provider Internal Medicine; Visit Provider Internal Medicine
DX: Z13.6 Encounter for screening for cardiovascular disorders (principal); Z13.1 Encounter for screening for diabetes mellitus; Z13.220 Encounter for screening for lipoid disorders; D64.9 Anemia, unspecified; E03.9 Hypothyroidism, unspecified
CPT/HCPCS: 36415; 80053; 80061; 84443; 85025

== ENCOUNTER → 2024-05-27 09:15 | Outpatient (CLI) | payer OTHER, SELFPAY ==
[2022-12-21 15:16] VITALS: BMI 19.1
[2024-05-27 10:57] LABS: Influenza A - CEPHEID Flu A NEGATIVE (NEGATIVE); Influenza B - CEPHEID Flu B NEGATIVE (NEGATIVE); Respiratory Syncytial Virus Negative (Negative)
[2024-05-27 11:35] LABS: COVID-19 CEPHEID 4-PLEX PCR POSITIVE (Negative)
== END ==
PROVIDERS: PCP Internal Medicine; Visit Provider Registered Nurse
DX: R05.1 Acute cough (principal)
CPT/HCPCS: 0241U

== ENCOUNTER 2024-07-01 14:05 | Emergency (ER) | payer OTHER, SELFPAY ==
[2022-12-21 15:16] VITALS: BMI 19.1
[2024-07-01] VITALS (7 sets, daily range): BP systolic 138–158; BP diastolic 68–78; PULSE 59–72; RESP 15–22; TEMP 36.6; O2SAT 97–100; BMI 19.3
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
[2024-07-01] MEDS: ACETAMINOPHEN 325 MG TABLET 975 MG PO (15:51)
[2024-07-01 16:09] LABS: Bacteria Urine None Seen; Culture Indicated Urine Cult Not Indicated; RBC Urine None Seen (0-5/HPF); Squamous Epithelial Cell Urine None Seen (0-5/HPF); Urine Volume 10mL (spun); WBC Urine None Seen (0-5/HPF)
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
== END 2024-07-01 16:54 | disposition home or self-care (01) ==
PROVIDERS: Emergency Provider Emergency Medicine; PCP Internal Medicine
DX: S16.1XXA Strain of muscle, fascia and tendon at neck level, initial encounter (principal); M25.561 Pain in right knee; R51.9 Headache, unspecified; V89.2XXA Person injured in unspecified motor-vehicle accident, traffic, initial encounter
CPT/HCPCS: 70450; 72125; 73560; 81003; 81015; 99284

== ENCOUNTER → 2024-12-14 08:02 | Outpatient (CLI) | payer OTHER, SELFPAY ==
[2024-11-13 10:47] VITALS: BMI 19.1
--- NOTE | 2024-12-14 08:03 | DI.MG.S_ITS ---
MM screening mammo BI: 12/14/2024. BI-RADS: 1 CLINICAL: 64-year old female for bilateral screening mammogram. Tyrer-Cuzick lifetime risk of 5.1%. No personal or first-degree family history of breast cancer. PRIOR EXAMS 11/18/2023, 08/28/2021, 12/16/2018. MAMMOGRAPHY TECHNIQUE: 2D and 3D (tomosynthesis) digital mammographic views obtained, with additional images as needed for full coverage. Current study was also evaluated with a Computer Aided Detection (CAD) system. DENSITY C. The breasts are heterogeneously dense, which may obscure small masses. MAMMOGRAPHY FINDINGS Bilateral: No suspicious mass, asymmetry, microcalcification, or other abnormality seen. No significant change from comparison. IMPRESSION: * No evidence of malignancy. RECOMMENDATIONS Bilateral * Annual screening mammography. OVERALL ASSESSMENT CATEGORY BI-RADS-1: Negative. The [employer] recommends annual screening mammography beginning at age 40 for women with average risk of breast cancer. ELECTRONICALLY SIGNED: Vero Mccracken M.D. on 12/15/2024 at 10:01:11 AM PT Interpreting Station ID: [id number]
== END ==
PROVIDERS: PCP Internal Medicine; Referring Provider Obstetrics & Gynecology; Visit Provider Obstetrics & Gynecology
DX: Z12.31 Encounter for screening mammogram for malignant neoplasm of breast (principal); R92.333 Mammographic heterogeneous density, bilateral breasts
CPT/HCPCS: 77063; 77067

== ENCOUNTER → 2025-01-31 11:27 | Outpatient (CLI) | payer OTHER, SELFPAY ==
[2024-11-13 10:47] VITALS: BMI 19.1
[2025-02-01 11:12] LABS: Fecal Immunochemical Test Positive (Negative)
== END ==
PROVIDERS: PCP Internal Medicine; Referring Provider Internal Medicine; Visit Provider Internal Medicine
DX: Z12.11 Encounter for screening for malignant neoplasm of colon (principal)
CPT/HCPCS: 82274

== ENCOUNTER 2025-03-08 07:10 | Day surgery (SDC) | payer OTHER, SELFPAY ==
[2024-11-13 10:47] VITALS: BMI 19.1
--- NOTE | 2025-03-08 | PATH_ITS ---
[facility] Accession Number: [id number] No. of containers..01 Tissue . 01 Material submitted: . colon - COLON, SIGMOID POLYP . 01 Diagnosis: COLON, SIGMOID POLYP: Tubular adenoma. [facility] 03/15/20251414 Local . 01 Electronically signed: . Antonio Lazcano MD, Pathologist NPI- [id number] . 01 Gross description: . COLON, SIGMOID POLYP: Received in formalin are 2 fragment(s) of sal, soft tissue measuring 0.5 x 0.5 x 0.3 cm to 0.6 x 0.4 x 0.4 cm submitted entirely in 1 cassette(s) /[facility] 03/15/20251414 Local . 01 Pathologist provided ICD-10: D12.5 . 01 CPT . 337717 Performed at: [address] [id number] MD Antonio Lazcano MD Phone: [phone]
[2025-03-08 07:26] VITALS: BP 117/72; PULSE 75; RESP 16; TEMP 36.4; O2SAT 99
[2025-03-08] MEDS: LACTATED RINGERS 1,000 ML 84 ML IV (07:38)
--- NOTE | 2025-03-08 08:34 | P.HP_ITS ---
History of Present Illness History of Present Illness Date Patient Seen: 03/08/25 Time Patient Seen: 08:34 Chief complaint: Screening Colonoscopy Narrative: Maci is a 64-year-old woman who presents for colonoscopy. She believes her last colonoscopy was about 30 years ago. She was no known family history of colon cancer. She has had a diagnosis of endometriosis and has had 2 diagnostic laparoscopies with findings of adhesions. She was told she had a ?tortuous colon? after her colonoscopy 30 years ago [facility] Medical History (Updated 03/08/25 @ 08:35 by Jm Galindo MD) Thrombosed external hemorrhoid COVID-19 (~05/2024) Chronic pelvic pain syndrome in female Fibroids (Unknown) Plantar warts (~1981) Eczema (Unknown) Acne (~1969) Allergic rhinitis (Unknown) Sleep apnea (Unknown) Migraines (Unknown) Foot pain (Unknown) Fractures (~1961) Shoulder pain (~2008) Chickenpox Tinnitus of both ears (Unknown) Vertigo (03/2017) Ovarian cyst (Unknown) Menstrual problem (Unknown) Genital warts (Unknown) Endometriosis (~1969) Chlamydia (~1980) IBS (irritable bowel syndrome) Hemorrhoids (Unknown) Surgical History H/O knee surgery History of oral surgery Status post laparoscopy Status post laparoscopy Family History Father Age: 94 Hypertension Grandmother Adult onset diabetes mellitus with ketoacidosis Grandfather No problems noted. Grandmother Cancer Mother No problems noted. Mother Hepatitis C Social History marital status: unmarried,single household members: none lives independently: Yes occupational status: unemployed Smoking Status: Never smoker alcohol intake: never substance use type: does not use Meds Home Medications and Allergies Home Medications ?Medication ?Instructions ?Recorded ?Confirmed ?Type calcium carbonate [Calcium 500] PO DAILY 12/25/24 050 05/14 History cholecalciferol (vitamin D3) PO DAILY 12/25/24 05/08/ 5 History sodium,potassium,mag sulfates 17.5 See Rx Instructions PO .COMPLEX 02/23/25 Rx gram-3.13 gram-1.6 gram oral soln #354 mL (Suprep Bowel Prep Kit) Allergies Allergy/AdvReac Type Severity Reaction Status Date / Time hydrocodone (From VICODIN) AdvReac Unknown Verified 03/08/25 07:23 Exam Vital Signs (past 8 hours): - 03/08/25 07:26 Temperature 97.5 F L Pulse Rate 75 Respiratory Rate 16 Blood Pressure 117/72 Pulse Oximetry 99 Oxygen Delivery Method Room Air Oxygen Delivery Method Room Air Const General: healthy appearing Resp Effort & Inspection: normal respiratory effort Assessment & Plan Assessment and plan (1) Colon cancer screening: Status: Acute Plan Colonoscopy Time-Based Coding :: [TOTAL MINUTES] spent with patient and on the chart (including review of chart, obtaining history, exam, reviewing outside data, placing orders, documenting exam and treatment plan, and counseling patient) on [DATE]. 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
[2025-03-08 09:18] VITALS: BP 110/60; PULSE 70; RESP 10; TEMP 36.4; O2SAT 98
--- NOTE | 2025-03-08 09:18 | PM.OP.COLON ---
Operative Date/Time/Diagnoses Date of procedure: 03/08/25 Time of procedure: 09:18 Pre-op diagnosis: Colon cancer screening Post-op diagnosis: same Procedure & Clinicians Study performed: Colonoscopy Same procedure(s) as scheduled: Yes Surgeon: Jm Galindo Procedure Notes Procedure in detail: Surgeon: Jm Galindo MD Anesthesia: Bernabe Murillo CRNA Procedure: The patient was brought to the endoscopy suite, placed in left lateral decubitus position. The patient was connected to monitoring devices. A time-out was performed. Sedation was administered. Once the patient was adequately sedated, a digital rectal exam was performed and was normal. The scope was then inserted and advanced to the cecum where the appendiceal orifice was identified and photographed. The scope was then slowly withdrawn over greater than 6 minutes. The mucosa was thoroughly inspected. There was 1 cm polyp in the sigmoid colon removed with a cold snare. The scope was retroflexed in the rectum. Internal hemorrhoids were noted. The scope was straightened and removed. The patient was awakened and brought to recovery. Scope withdrawal time: 12 minutes Sedation time: 20 minutes EBL: 2 mL Findings: A 1 cm polyp in the sigmoid colon and internal hemorrhoids Post-procedure Disposition: PACU
[2025-03-08 09:19] VITALS: BP 96/60; PULSE 86; RESP 15; O2SAT 96
[2025-03-08 09:21] VITALS: BP 98/63; PULSE 82; RESP 14; O2SAT 96
[2025-03-08 09:25] VITALS: BP 107/66; PULSE 68; RESP 14; O2SAT 97
== END 2025-03-08 09:59 | disposition home or self-care (01) ==
PROVIDERS: PCP Internal Medicine; Referring Provider Surgery; Visit Provider Surgery
PROC: 0DJD8ZZ Inspection of Lower Intestinal Tract, Via Natural or Artificial Opening Endoscopic (ICD-10-PCS; CPT 45378; principal; 2025-03-08 08:30)
DX: Z12.11 Encounter for screening for malignant neoplasm of colon (principal); K64.8 Other hemorrhoids; D12.5 Benign neoplasm of sigmoid colon
CPT/HCPCS: 45385; J2704